=== PATIENT | female | born 1960 | race Caucasian/White ===

== ENCOUNTER 2022-11-12 20:18 | Outpatient (REF) | payer OTHER, SELFPAY ==
[2022-11-19 00:09] LABS: Age Gdln ACOG Testing Note (.); HPV Aptima Positive (Negative); HPV Genotype 16 Negative (Negative); HPV Genotype 18,45 Negative (Negative); IGP, Aptima HPV, rfx 16/18,45 Note (.)
== END 2022-11-12 20:19 | disposition home or self-care (01) ==
LOC: LAB 20:18
PROVIDERS: Visit Provider Obstetrics & Gynecology
DX: Z01.419 Encounter for gynecological examination (general) (routine) without abnormal findings (principal)
CPT/HCPCS: 87624; 87625; G0145

== ENCOUNTER 2023-11-29 20:53 | Outpatient (REF) | payer OTHER, SELFPAY ==
[2023-12-07 03:07] LABS: Age Gdln ACOG Testing Note (.); HPV Aptima Positive (Negative); HPV Genotype 16 Negative (Negative); HPV Genotype 18,45 Negative (Negative); IGP, Aptima HPV, rfx 16/18,45 Note (.)
== END 2023-11-29 20:54 | disposition home or self-care (01) ==
LOC: LAB 20:53
PROVIDERS: Visit Provider Obstetrics & Gynecology
DX: Z01.419 Encounter for gynecological examination (general) (routine) without abnormal findings (principal)
CPT/HCPCS: 87624; 87625; 88175

== ENCOUNTER 2024-11-30 12:44 | Outpatient (REF) | payer OTHER, SELFPAY ==
--- OUTSIDE RECORDS SUMMARY | 2024-11-30 12:50 | XMS_ITS | CCD ---
Author Organization [facility] Care Team Providers Care Campaign Management Senior Manager Name Role Phone KENDRICK ., DR DENSON Consulting Unavailable REQUEST, DR NONE LISTED Primary Care Unavaila ble KENDRICK ., DR DENSON Admitting Unavailable KENDRICK ., DR DENSON Attending Unavailable KAREN IVAN Consulting Unavailable KENDRICK ., DR DENSON Attending Unavailable KENDRICK ., DR DENSON Consulting Unavailable REQUEST, DR NONE LISTED Primary Care Unavaila ble KENDRICK ., DR DENSON Admitting Unavailable KILO HUANG Consulting Unavailable WES LOERA Consulting Unavailable GI AGUILAR Primary Care Unavailable Gi Aguilar Primary Care Unavailable Carlos Tsang Admitting UnavailCarlos Cardenas Attending Unavailabl e Unallocated , Noms Provider Primary Care Provi adry DEVIN MARKS Attending Unavailable JANET HARRIS Attending Unavailable Kannan Hi HAZEL Primary Care Provider [phone] Hi Tolbert MD Primary Care Provider [phone] GI AGUILAR Referring Unavailable GI AGUILAR Primary Care Unavailable GIOVANA DURANT Attending Unavailable KANNAN, MUHAMID M Referring Unavailable KANNAN, MUHAMID Ji Primary Care Unavailable CAMERON MYERS Attending Unavailable KANNANANUHAMID Ji Referring Unavailable KANNANANUHAMBROOKLYN Workman Primary Care Unavailable CAMERON MYERS Attending Unavailable KANNAN, ANUHAMID M Referring Unavailable KANNAN, MUHAMID M Primary Care Unavailable CAMERON MYERS Attending Unavailable KANNAN, ANUHAMID Ji Referring Unavailable KANNAN, MUHAMID M Primary Care Unavailable MICHELLE FLORES Attending Unavailable KANNANANUHAMID M Referring Unavailable KANNAN, MUHAMID M Primary Care Unavailable GLENDY, MOHAMMED Attending Unavailable KANNAN, MUHAMID M Referring Unavailable KANNAN, MUHAMID M Primary Care Unavailable DEVIN MARKS Referring Unavailable KANNAN, MUHAMID M Primary Care Unavailable ALLISON CORONA Attending Unavailable KANNAN, MUHAMID M Referring Unavailable KANNAN, MUHAMID M Primary Care Unavailable ALLISON CORONA Attending Unavailable ALLISON CORONA Referring Unavailable KANNAN, MUHAMID M Primary Care Unavailable GLENDY, MOHAMMED Referring Unavailable KANNAN, MUHAMID M Primary Care Unavailable EDD BRUNO Attending Unavailable KANNAN, MUHAMID M Referring Unavailable KANNAN, MUHAMID M Primary Care Unavailable KANNAN, MUHAMID M Primary Care Unavailable CAMERON MYERS Referring Unavailable KANNAN, MUHAMID M Primary Care Unavailable CAMERON MYERS Referring Unavailable KANNAN, MUHAMID M Primary Care Unavailable Allergies Allergy Classification Reported Allergen(s) Allergy Type Date of Onset Reaction(s) Facility (1 source) Dextroamphetamine Drug Allergy [facility] (1 source) Sulfonamides (Antibiotic) Drug allergy (disorder) [facility] Repository (13 sources) Penicillins; Translations: [PENICILLINS] Propensity to adverse reactions 07-08-19 [facility] (12 sources) Rosuvastatin calcium; Translations: [ROSUVASTATIN] Propensity to adverse reactions 07-08-19 [facility] (20 sources) Sulfonamides (Antibiotic) Drug Allergy 10-10-19 Rash [facility] (3 sources) Penicillins Propensity to adverse reactions to drug 07-08-19 [facility] (14 sources) rosuvastatin Drug Allergy 07-08-19 [facility] (16 sources) Sulfate Salt; Translations: [SULFATE SALT] Propensity to adverse reactions to drug 08-03-19 19 [facility] (10 sources) Penicillins Propensity to adverse reactions to drug 07-08-19 [facility] (4 sources) Sulfonamides (Antibiotic); Translations: [SULFA (SULFONAMIDE ANTIBIOTICS)] Propensity to adverse reactions to drug (disorder) 10-10-19 [facility] (2 sources) Sulfated Tallow Sodium Salt Allergy to substance 08-03-19 [facility] Medications Current Medications Medication Drug Class(es) Dates Sig (Normalized) Sig (Original) acetaminophen 500 mg oral tablet (20 sources) Start: 03-30-2022 take 2 tablets by mouth every six hours as needed acetaminophen (Tylenol) 500 MG tablet Take 1,000 mg by mouth every 6 (six) hours if needed. 03/30/2022 Active acetaminophen 325 mg / HYDROcodone bitartrate 5 mg oral tablet (4 sources) Opioid Agonist Start: 10-26-2024 End: 11-06-2024 HYDROcodone-acetami nophen (NORCO) 5-325 mg per tablet Indications: Acute bilateral low back pain with sciatica, sciatica laterality unspecified , Bulging of lumbar intervertebral disc Take 1 tablet by mouth every 6 (six) hours as needed for pain for up to 7 days. Max Daily Amount: 4 tablets 28 tablet 10/30/2024 11/06/2024 Active ascorbic acid 60 mg / cuprous oxide 2 mg / dl-alpha tocopheryl acetate 30 mg / lutein 6 mg / zinc oxide 15 mg oral capsule (3 sources) Vitamin C take 1 tablet by mouth in the morning Multiple Vitamins-Minerals (Multi Complete) capsule Take 1 tablet by mouth in the morning. Active aspirin 81 mg chewable tablet (20 sources) Platelet Aggregation Inhibitor, Nonsteroidal Anti-inflammatory Drug ASPIRIN 81 MG chewable tablet Chew 81 mg 1 (one) time each day at the same time. Active take 1 tablet by mouth once alen y aspirin 81 mg Take 1 tablet (81 mg total) by mouth nightly. Active atorvastatin 20 mg oral tablet (20 sources) HMG-CoA Reductase Inhibitor Start: 11-25-2023 take 1 tablet by mouth in the morning atorvastatin (Lipitor) 20 MG tablet Take 20 mg by mouth in the morning. 11/25/2023 Active Calcium (14 sources) Phosphate Binder, Calcium CALCIUM ORAL Take by mouth in the morning. Active CALCIUM ORAL Mariusz e by mouth daily. Active cephalexin 500 mg oral capsule (2 sources) Cephalosporin Antibacterial Start: 01-27-2024 End: 02-03-2024 take 1 capsule by mouth in the morning cephalexin (Keflex) 500 MG capsule Indications: Folliculitis , Itching in the vaginal area Take 1 capsule (500 mg) by mouth in the morning and 1 capsule (500 mg) before bedtime. Do all this for 7 days. 14 capsule 01/27/2024 02/03/2024 Active cholecalciferol, vitD3,/vit K2 (VITAMIN D3-VITAMIN K2 ORAL) (10 sources) cholecalciferol, vitD3,/vit K2 (VITAMIN D3-VITAMIN K2 ORAL) Take by mouth. Active ciprofloxacin 500 mg oral tablet (2 sources) Quinolone Antimicrobial Start: 11-30-2024 End: 12-07-2024 take 1 tablet by mouth in the morning ciprofloxacin (Cipro) 500 MG tablet Indications: Urinary Tract Infection Take 1 tablet (500 mg) by mouth in the morning and 1 tablet (500 mg) before bedtime. Do all this for 7 days. 14 tablet 11/30/2024 12/07/2024 Active colchicine 0.6 mg oral tablet (10 sources) take 1 tablet by mouth in the morning colchicine 0.6 MG tablet Take 0.6 mg by mouth in the morning. Active ezetimibe 10 mg oral tablet (15 sources) Dietary Cholesterol Absorption Inhibitor Start: 11-25-2023 End: 10-04-2024 take 1 tablet by mouth in the morning ezetimibe (ZETIA) 10 mg tablet Take 1 tablet (10 mg total) by mouth in the morning. 90 tablet 2 10/04/2024 Active fluconazole 150 mg oral tablet (2 sources) Azole Antifungal Start: 01-27-2024 End: 01-27-2024 take 1 tablet by mouth once, then take 1 tablet by mouth once fluconazole (Diflucan) 150 MG tablet Indications: Folliculitis , Itching in the vaginal area , Yeast infection Take 1 tablet (150 mg) by mouth 1 (one) time for 1 dose This is a 1 time dose, take single tablet by mouth. 1 tablet 1 01/27/2024 01/27/2024 Active 24 hr isosorbide mononitrate 30 mg extended release oral tablet (20 sources) Nitrate Vasodilator Start: 10-27-2022 End: 04-10-2024 take 1 tablet by mouth once daily isosorbide mononitrate ER (Imdur) 30 MG 24 hr tablet Take 1 tablet by mouth Daily 10/27/2022 Active latanoprost 0.05 mg/ml ophthalmic solution (10 sources) Prostaglandin Analog take 1 drop(s) into the eye(s) at bedtime latanoprost (Xalatan) 0.005 % ophthalmic solution Administer 1 drop into both eyes at bedtime. Active lisinopril 5 mg oral tablet (20 sources) Angiotensin Converting Enzyme Inhibitor Start: 04-13-2022 End: 04-14-2024 take 1 tablet by mouth in the morning lisinopril 5 MG tablet Take 5 mg by mouth in the morning. 04/13/2022 Active 24 hr metFORMIN hydrochloride 500 mg extended release oral tablet (17 sources) Biguanide Start: 09-22-2024 take 1 tablet by mouth every twenty-four hours at mealtime metFORMIN XR (Glucophage-XR) 500 MG 24 hr tablet Indications: Unable to lose weight TAKE 1 TABLET BY MOUTH IN THE EVENING. TAKE WITH MEALS DO NOT CRUSH, CHEW, OR SPLIT. 90 tablet 3 09/22/2024 Active Start: 11-29-2023 End: 12-29-2023 take 1 tablet by mouth every twenty-four hours at mealtime metFORMIN XR (Glucophage-XR) 500 MG 24 hr tablet Indications: Unable to lose weight Take 1 tablet (500 mg) by mouth in the evening. Take with meals Do not crush, chew, or split. 30 tablet 11 11/29/2023 Active End: 08-30-2024 take 1 tablet by mouth once daily at breakfast metFORMIN XR (GLUCOPHAGE XR) 500 mg 24 hr tablet Take 1 tablet (500 mg total) by mouth daily with breakfast. 08/30/2024 Discontinued (Patient Stopped On Own) metoprolol tartrate 50 mg oral tablet (20 sources) beta-Adrenergic Manuel Start: 03-29-2023 End: 04-14-2024 take 1 tablet by mouth once metoprolol tartrate (LOPRESSOR) 50 mg tablet Take 1 tablet (50 mg total) by mouth every 12 (twelve) hours. 180 tablet 3 03/29/2023 04/14/2024 Discontinued Start: 04-13-2022 take 1 tablet by angelic th in the morning metoprolol tartrate (Lopressor) 50 MG tablet Take 50 mg by mouth in the morning and 50 mg in the evening. 04/13/2022 Active Multiple Vitamins-Minerals (Multi Complete) capsule (7 sources) take 1 tablet by mouth in the morning Multiple Vitamins-Minerals (Multi Complete) capsule Take 1 tablet by mouth in the morning. Active jvmpkjhu-fkd-NO-lycopen- lutein (CENTRUM SILVER) 0.4 mg-300 mcg- 250 mcg tablet (14 sources) take 1 tablet by mouth once in the morning dslbuokx-ixk-DO-lycopen -lutein (CENTRUM SILVER) 0.4 mg-300 mcg- 250 mcg tablet Take 1 tablet by mouth in the morning. Active naloxone (NARCAN) 4 mg/actuation spray,non-aerosol nasal spray (3 sources) Start: naloxone (NARCAN) 4 mg/actuation spray,non-aerosol nasal spray Indications: Acute bilateral low back pain with sciatica, sciatica laterality unspecified , Bulging of lumbar intervertebral disc Administer 1 spray (4 mg total) into alternating nostrils as needed for opioid reversal. 1 each 10/30/2024 Active nitroglycerin 0.4 mg sublingual tablet (14 sources) Nitrate Vasodilator Start: nitroglycerin (NITROSTAT) 0.4 MG SL tablet Indications: Multiple vessel coronary artery disease , S/P CABG (coronary artery bypass graft) 1 under the tongue as needed for angina, may repeat q5mins for up three doses 30 tablet 3 11/25/2023 Active 12 hr orphenadrine citrate 100 mg extended release oral tablet (5 sources) Muscle Relaxant Start: End: take 1 tablet by mouth twice daily as needed for pain orphenadrine (NORFLEX) 100 mg 12 hr tablet Indications: Acute bilateral low back pain with sciatica, sciatica laterality unspecified , Bulging of lumbar intervertebral disc Take 1 tablet (100 mg total) by mouth 2 (two) times a day as needed for pain or muscle spasms for up to 14 days. 28 tablet 11/03/2024 11/10/2024 Discontinued (Therapy completed) predniSONE 20 mg oral tablet (3 sources) Start: End: take 1 tablet by mouth once daily, then take 0.5 tablet by mouth once daily predniSONE (DELTASONE) 20 mg tablet Indications: Acute bilateral low back pain with right-sided sciatica Take 1 tablet (20 mg total) by mouth daily for 4 days, THEN 0.5 tablets (10 mg total) daily for 4 days. 6 tablet 10/30/2024 11/07/2024 Active 12 hr timolol 5 mg/ml ophthalmic solution (14 sources) beta-Adrenergic Manuel Start: take 1 drop(s) into the eye(s) in the morning timolol (TIMOPTIC) 0.5 % ophthalmic solution Administer 1 drop to both eyes in the morning. 11/30/2023 Active valACYclovir 500 mg oral tablet (8 sources) Herpesvirus Nucleoside Analog DNA Polymerase Inhibitor, Herpes Simplex Virus Nucleoside Analog DNA Polymerase Inhibitor, Herpes Zoster Virus Nucleoside Analog DNA Polymerase Inhibitor Start: take 1 tablet by mouth in the morning valACYclovir (VALTREX) 500 mg tablet Take 1 tablet (500 mg total) by mouth in the morning. 08/13/2024 Active Start: 07-17-2024 End: 07-27-2024 take 1 tablet by mouth in the morning, then take 1 tablet by mouth at bedtime valACYclovir (VALTREX) 1000 mg tablet Take 1 tablet (1,000 mg total) by mouth in the morning and 1 tablet (1,000 mg total) before bedtime. 07/17/2024 07/27/2024 Active Completed/Discontinued Medications Medication Drug Class(es) Dates Sig (Normalized) Sig (Original) cholecalciferol 0.125 mg oral tablet (5 sources) Vitamin D End: 07-20-2024 cholecalciferol, vitamin D3, 5,000 units tablet Take 1,000 Units by mouth in the morning. 07/20/2024 Discontinued (Patient Stopped On Own) estradiol 0.1 mg/ml vaginal cream (3 sources) Estrogen Start: 03-20-2020 End: 11-29-2023 estradiol (Estrace) 0.1 MG/GM vaginal cream Insert 2 g into the vagina 1 (one) time each day at the same time. 03/20/2020 11/29/2023 Discontinued pravastatin sodium 40 mg oral tablet (3 sources) HMG-CoA Reductase Inhibitor Start: 03-19-2022 End: 11-29-2023 take 1 tablet by mouth in the morning pravastatin (Pravachol) 40 MG tablet Take 40 mg by mouth in the morning. 03/19/2022 11/29/2023 Discontinued semaglutide (OZEMPIC) 0.25 mg or 0.5 mg (2 mg/3 mL) pen injector (3 sources) Start: 08-04-2024 End: 08-30-2024 semaglutide (OZEMPIC) 0.25 mg or 0.5 mg (2 mg/3 mL) pen injector Indications: Obesity (BMI 35.0-39.9 without comorbidity) , Prediabetes Inject 0.5 mg under the skin every 7 days. 3 mL 08/04/2024 08/30/2024 Discontinued Start: 08-04-2024 semaglutide (O ZEMPIC) 0.25 mg or 0.5 mg (2 mg/3 mL) pen injector Indications: Obesity (BMI 35.0-39.9 without comorbidity) , Prediabetes Inject 0.5 mg under the skin every 7 days. 3 mL 08/04/2024 Active Problems Active Problems Problem Classification Problem Date Documented Date Episodic/Chronic Abdominal pain (1 source) Pelvic and perineal pain; Translations: [PELVIC AND PERINEAL PAIN] Onset: 06-24-2022 Episodic Acute myocardial infarction (14 sources) Myocardial infarction; Translations: [Non-ST elevation (NSTEMI) myocardial infarction] Onset: 03-25-2022 03-25-2022 Chronic Coronary atherosclerosis and other heart disease (20 sources) Coronary arteriosclerosis; Translations: [Atherosclerotic heart disease of [place] coronary artery without angina pectoris] Onset: 03-26-2022 03-26-2022 Chronic Diabetes mellitus without complication (1 source) Type 2 diabetes mellitus without complications; Translations: [TYPE 2 DM WITHOUT COMPLICATIONS] Onset: 06-24-2022 Chronic Diabetes mellitus without complication (13 sources) Prediabetes; Translations: [Hyperglycemia] Onset: 08-04-2024 08-04-2024 Episodic Disorders of lipid metabolism (1 source) Hyperlipidemia, unspecified; Translations: [Hyperlipidemia, unspecified] Onset: 11-25-2023 Chronic Diverticulosis and diverticulitis (14 sources) Diverticulitis; Translations: [Diverticulitis of intestine, part unspecified, without perforation or abscess without bleeding] Onset: 09-22-2023 09-22-2023 Chronic Essential hypertension (2 sources) Essential (primary) hypertension; Translations: [ESSENTIAL PRIMARY HYPERTENSION] Onset: 06-24-2022 Chronic Malaise and fatigue (2 sources) Fatigue; Translations: [Other fatigue] 11-29-2023 Episodic Mycoses (2 sources) Mycosis; Translations: [Candidiasis, unspecified] 01-27-2024 Episodic Osteoporosis (2 sources) Postmenopausal osteoporosis; Translations: [Age-related osteoporosis without current pathological fracture] 11-30-2024 Chronic Other bone disease and musculoskeletal deformities (2 sources) Osteopenia; Translations: [Other specified disorders of bone density and structure, unspecified site] 11-29-2023 Episodic Other female genital disorders (2 sources) Cyst of vagina; Translations: [Other specified noninflammatory disorders of vagina] 01-27-2024 Episodic Other female genital disorders (2 sources) Pruritus of vagina; Translations: [Other specified noninflammatory disorders of vagina] 01-27-2024 Episodic Other non-traumatic joint disorders (1 source) Hip pain Onset: 10-26-2024 Episodic Other nutritional; endocrine; and metabolic disorders (18 sources) Body mass index 30+ - obesity; Translations: [Body mass index (BMI) 33.0-33.9, adult] Onset: 03-09-2018 03-09-2018 Chronic Other nutritional; endocrine; and metabolic disorders (2 sources) Obesity, unspecified; Translations: [Obesity, unspecified] Onset: 11-25-2023 Chronic Other screening for suspected conditions (not mental disorders or infectious disease) (1 source) Abnormal findings on diagnostic imaging of other specified body structures; Translations: [ABNORML FIND DX IMG OTH BODY STRUC] Onset: 06-24-2022 Chronic Other screening for suspected conditions (not mental disorders or infectious disease) (19 sources) Patient encounter status; Translations: [Encounter for screening mammogram for malignant neoplasm of breast] Onset: 08-02-2018 11-29-2023 Episodic Residual codes; unclassified (14 sources) Obstructive sleep apnea syndrome; Translations: [Obstructive sleep apnea (adult) (pediatric)] Onset: 03-09-2018 03-09-2018 Chronic Spondylosis; intervertebral disc disorders; other back problems (7 sources) Disorder of lumbar disc; Translations: [Bulging of lumbar intervertebral disc] Onset: 10-30-2024 10-30-2024 Chronic Spondylosis; intervertebral disc disorders; other back problems (11 sources) Acute back pain with sciatica; Translations: [Lumbago with sciatica, right side] Onset: 08-04-2024 10-30-2024 Episodic Unclassified (1 source) Er Follow-up Onset: 10-30-2024 Unclassified (1 source) ozempic Onset: 08-04-2024 Unclassified (1 source) EMS Onset: 10-26-2024 Urinary tract infections (2 sources) Urinary tract infectious disease; Translations: [Urinary tract infection, site not specified] 11-30-2024 Episodic Past or Other Problems Problem Classification Problem Date Documented Da te Episodic/Chronic Anal and rectal conditions (1 source) Other specified diseases of anus and rectum; Translations: [Other specified diseases of anus and rectum] Onset: 01-19-2024 Episodic Coronary atherosclerosis and other heart disease (1 source) Presence of aortocoronary bypass graft; Translations: [Presence of aortocoronary bypass graft] Onset: 11-25-2023 Episodic Gastrointestinal hemorrhage (2 sources) Hemorrhage of anus and rectum; Translations: [Rectal hemorrhage] Onset: 01-19-2024 Episodic Genitourinary symptoms and ill-defined conditions (14 sources) Dysuria; Translations: [Dysuria] Onset: 09-22-2023 09-22-2023 Episodic Mood disorders (14 sources) Mood disorders Onset: 09-22-2023 Resolved: 11-10-2024 09-22-2023 Other and unspecified benign neoplasm (14 sources) History of adenomatous polyp of colon; Translations: [History of adenomatous polyp of colon] Onset: 08-02-2018 08-02-2018 Episodic Other inflammatory condition of skin (1 source) Pruritus ani; Translations: [Pruritus ani] Onset: 01-19-2024 Episodic Other lower respiratory disease (17 sources) Dyspnea; Translations: [Shortness of breath] Onset: 02-19-2023 02-19-2023 Episodic Other lower respiratory disease (1 source) Shortness of breath; Translations: [Shortness of breath] Onset: 02-19-2023 Episodic Other nutritional; endocrine; and metabolic disorders (14 sources) Morbid obesity; Translations: [Morbid (severe) obesity due to excess calories] Onset: 03-09-2018 Resolved: 03-09-2018 03-09-2018 Chronic Other nutritional; endocrine; and metabolic disorders (11 sources) Failure to lose weight; Translations: [Other symptoms and signs concerning food and fluid intake] Onset: 11-29-2023 11-29-2023 Episodic Other skin disorders (20 sources) Loss of hair; Translations: [Nonscarring hair loss, unspecified] Onset: 11-29-2023 11-29-2023 Episodic Other skin disorders (7 sources) Folliculitis; Translations: [Follicular disorder, unspecified] Onset: 01-27-2024 01-27-2024 Episodic Residual codes; unclassified (1 source) Pain, unspecified; Translations: [Pain, unspecified] Onset: 01-10-2024 Episodic Unclassified (14 sources) Onset: 08-02-2018 Resolved: 11-10-2024 08-02-2018 Results Test Name Value Interpretation Reference Range Facility Urinalysis macro (dipstick) panel (U)on 11-30-2024 Bilirubin, UA Negative Negative - 4(70) +++ mg/dL [facility] Blood, UA Negative Negative - 50 Reggie/mcL [facility] Clarity, UA Clear [facility] re Color, UA Yellow [facility] [employer] Glucose, UA Negative Negative - 2000(110) ++++ mg/dL [facility] Interpretation and review of laboratory results Normal [facility] Ketones, UA Negative Negative - 160(16) ++++ mg/dL [facility] Leukocytes, UA 1+ Negative - 500+++ Amy/mcL [facility] Nitrite, UA Negative Negative - Positive [facility] pH, UA 6.0 5 - 9 [facility] [email or web address] e Protein, UA Negative Negative - 2000(20) ++++ mg/dL [facility] Spec Grav, UA 1.020 1 - 1.03 [facility] Urobilinogen, UA 1.0 0.2 - 12 mg[facility] WO CONTon CT LUMBAR SPINE WO CONT CT LUMBAR SPINE WO CONT History: Pain and injury. Exam/Technique: Contiguous axial images are obtained of the CT lumbar spine without intravenous contrast. Coronal and sagittal reconstructions were performed and reviewed. Automatic dose exposure reduction technique utilized. Comparison: Findings: No paraspinous mass or fluid collection. Nonobstructing stone in the lower pole of the right kidney. Vascular calcification of the aorta. Osteopenia. Scoliosis. Multilevel degenerative changes disc osteophytes and facet disease. No loss of vertebral body height. Scattered Schmorl's nodes as seen at L1 superior endplate. Disc spaces above the thoracolumbar junction are grossly noted to demonstrate marked degenerative disc disease without significant central canal stenosis or neural canal stenosis. L1-L2 marginal disc bulging without any significant stenosis. L2-3 broad-based disc bulge flattening the thecal sac facet disease resulting in central canal stenosis and mild neural canal and lateral recess stenosis. This is noted more marked on the right than the left. L3-4 significant broad-based disc bulge and posterior element facet hypertrophy. Moderate central canal stenosis and moderate neural canal stenosis right more than left. L4-5: Broad-based disc bulge. Facet disease. No significant central canal stenosis. Bilateral moderate neural canal stenosis. L5-S1: disc bulging and disc osteophyte complexes. Neural canal stenosis moderate degree. IMPRESSION: Significant disc osteophyte complexes and asymmetrical in the lumbar spine with central canal stenosis at L3-4 most advanced and moderate neural canal stenosis noted at L3-4 and L4-5 as well as further areas of right-sided neural canal stenosis at L2-3. All CT scans at this facility use dose modulation, iterative reconstruction, and/or weight based dosing when appropriate to reduce radiation dose to as low as reasonably achievable. Finalized by Bryn Hernández MD on 10/26/2024 12:29 PM Normal [facility] URINALYSISon 10-26-2024 Bilirubin Ql (U) Negative Normal Negative [facility] Comment on above: Performed By: #### U A #### [facility] ([address] [id number] VIR BLOOD/HGB Negative Normal Negative [facility] Comment on above: Performed By: #### U A #### [facility] ([address] [address] VIR Color (U) Yellow Normal Yellow [facility] Comment on above: Performed By: #### U A #### [facility] ([address] [address] VIR Glucose Ql (U) Negative Normal Negative, 250 mg/dL [facility] Comment on above: Performed By: #### U A #### [facility] ([address] [address] VIR Ketones Ql (U) Negative Normal Negative [facility] Comment on above: Performed By: #### U A #### [facility] ([address] [place] [address] VIR Leukocyte esterase Test strip Ql (U) Negative Normal Negative [facility] Comment on above: Performed By: #### U A #### [facility] ([address] [place] [address] VIR Nitrite Ql (U) Negative Normal Negative [facility] Comment on above: Performed By: #### U A #### [facility] ([address] [place] [address] VIR PH,URINE 7.0 Normal 5.0-8.5 [facility] Comment on above: Performed By: #### U A #### [facility] ([address] [place] [address] VIR Protein Ql (U) Negative Normal Negative [facility] Comment on above: Performed By: #### U A #### [facility] ([address] [place] [address] VIR Specific gravity (U) [Rel density] 1.010 Normal 1.003-1.035 [facility] Comment on above: Performed By: #### U A #### [facility] ([address] [place] [address] VIR TURBIDITY Clear Normal Clear [facility] Comment on above: Performed By: #### U A #### [facility] ([address] [place] [address] VIR UROBILINOGEN 0.2 eu/dL Normal 0.2 eu/dL, 1.0 eu/dL [facility] Comment on above: Performed By: #### U A #### [facility] ([address] [place] [address] VIR XR HIP RT 2-3 VIEWS W OR WO PELVISon 10-26-2024 XR HIP RT 2-3 VIEWS W OR WO PELVIS XR HIP RT 2-3 VIEWS W OR WO PELVIS XR HIP RT 2-3 VIEWS W OR WO PELVIS HISTORY: Right hip pain radiating down right lower extremity. COMPARISON: CT abdomen and pelvis 11/03/2023 FINDINGS: No acute fracture or malalignment. Joint spaces appear grossly well-preserved. Pelvic ring appears intact. No obvious soft tissue abnormality. Degenerative changes at L5-S1. Mild heterotopic bone formation near the greater trochanter IMPRESSION: * No acute osseous abnormality. Approved by Resident: Luis Dias MD on 10/26/2024 4:05 PM I, Chet Mondragon MD have personally reviewed the image(s) and agree with and/or edited the report H9 Finalized by Chet Mondragon MD on 10/26/2024 4:09 PM Normal [facility] POCT Hemoglobin A1con 2024 ADA Target < 8 Yes [facility] HbA1c (Bld) [Mass fraction] 6.3 % 4 - 7 % [facility] LDL CHOLESTEROL, DIRECTon Cholesterol in LDL [Mass/Vol] 74 mg/dL Normal <=130 [facility] Comment on above: Result Comment: LDL <100 mg/dL - Desirable LDL 130-159 mg/dL - Borderline High Risk LDL >160 mg/dL - High Risk Performed By: #### D LDL #### [facility] ([facility]) [address] [place] [address] VIR TRIGLYCERIDESon 07-14-2024 Triglyceride [Mass/Vol] 174 mg/dL High 27-150 [facility] Comment on above: Performed By: #### T RIG #### [facility] ([facility]) 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 Computer aided detection was utilized. FINDINGS: There are scattered areas of fibroglandular density. There are no suspicious masses, calcifications, or areas of architectural distortion. IMPRESSION: No mammographic evidence of malignancy. BI-RADS: BI-RADS 1 - Negative RECOMMENDATION: Routine screening mammogram in 1 year. RISK ASSESSMENT: TC Lifetime risk: 9.1%. The patient's reported personal and family medical history was used calculate their Tyrer-Cuzick lifetime risk of malignancy. Scores less than 20% are not considered high risk per ACR guidelines and patient should continue with the above recommendation. Finalized by Andre Hauser MD on 01/11/2024 10:38 AM 1 b MAMM 1 YR Normal [facility] IGP,APTIMA HPV,AGE GDLNon AGE GDLN ACOG TESTING Note . [facility] Comment on above: TESTS RESULT FLAG UN ITS REF RANGE LAB Clinician Provided Cytology Information Source.............Cervix;Endocervix No. of containers..01 ThinPrep Vial Age Algo ACOG [place]... 30- FLAG LEGEND: L-Low Normal,H-High Normal,LL-Alert Low,HH-Alert High <-Panic Low,>-Panic High,A-Abnormal,AA-Critical Abnormal Performed at: 01 =G [address] [address] Margie Menjivar MD, HPV APTIMA Positive Abnormal Negative [facility] Comment on above: This nucleic acid am plification test detects fourteen high- risk HPV types (16,18,31,33,35,39,45,51,52,56,58,59,66,68) without differentiation. HPV GENOTYPE 16 Negative Negative [facility] HPV GENOTYPE 18,45 Negative Negative [facility] Comment on above: Performed at: =G - L [facility] [address], [place] [id number] Circulation Tender: Margie Menjivar MD, Phone: [phone] Performed at: [facility] [address] [id number] Circulation Tender: Margie Menjivar MD, Phone: [phone] IGP, APTIMA HPV, RFX 16/18,45 Note . [facility] Comment on above: TESTS RESULT FLAG UN ITS REF RANGE LAB DIAGNOSIS: 02 NEGATIVE FOR INTRAEPITHELIAL LESION OR MALIGNANCY. CELLULAR CHANGES ASSOCIATED WITH INFLAMMATION ARE PRESENT. Specimen adequacy: 02 Satisfactory for evaluation. Endocervical and/or squamous metaplastic cells (endocervical component) are present. Performed by: Modesta Farmer, Gunite Nozzle Operator (ASCP) . 02 Note: Note 02 The Pap smear is a screening test designed to aid in the detection of premalignant and malignant conditions of the uterine cervix. It is not a diagnostic procedure and should not be used as the sole means of detecting cervical cancer. Both false-positive and false-negative reports do occur. Test Methodology: Note 02 This liquid based ThinPrep(R) pap test was screened with the use of an image guided system. HPV Genotype Reflex Note 02 Criteria met, see HPV Genotype results. FLAG LEGEND: L-Low Normal,H-High Normal,LL-Alert Low,HH-Alert High <-Panic Low,>-Panic High,A-Abnormal,AA-Critical Abnormal Performed at: [address] [address] Margie Menjivar MD, Interpretation and review of laboratory results Abnormal [employer] [facility]AT[facility] CERVIX ENDOCERVIX [facility] Cervical or vaginal smear or scraping studyOrdered By: Lisa Jackson on 11-29-2023 Interpretation and review of laboratory results Abnormal [facility] [employer] [facility] Coding Summaryon 02-23-2023 Coding Summary HTMLBase 64 NkldfqjbCQx0pQn+PGhlY WQ+HB7NQGCtH35lbYDauB 1qW5YVQTtCZinjQIYXRHg YWiZonrQwEM3fbJViXFMb IC8+PL4nPMEtJgqlvQEbr 9X9dCM4H24ynu8tYGvitF Q2DTBwMxDhqrdjd1eghKr 6IDcuNmluOyBt KOUjiV93AIW1jW22Wa87y ZKunQKxu0wbiNv0KtRcSB NiCRJ3xZqgDPltq8ZgGQL cK22izVDjl8L1 KDOfxAjiiFTgFwRloAY1p B6iKTmehgfoz0ldbousSn v9wa66pKVmr7U8hJR4O2V sjwN4YHYdoRWp ZqdlnYSBzC2mtserc6mex rnvVdKaEWElDFl4BWx9JE IhjXmfVsFoYT58VOB1VYV rceDtU8JpYGTf aDrwUxF8q6V0Rq5YM4FMF unsS1ASZVXUMNxixJH+PC 09pi38Z5XfIltyVsw9FGB oYIO0xCD9bE0p QUFiZJtgz3J2uBB4Q4Rvw aAstm0zd0puRFFxYSacG3 7ahGKtr2G6JFHbqNT3RZM lmIcjMaAnlL39 Oyc+MSKqqSuai4TbUoxbb 2dnn8zblSu2PyrtUDRoxl GsdQjiRDH1j8PgOw5dMCU lkMM0jLZ8dP8i RuQyDyP4LUgaX650IrWsl NGnSyveB54tZ6GghBJ+PH IsApg3AZAloDayOA5zT1H hZGRpbmctbGVm dUhoOR3pBNJqoytwZWGec G2eLJGpE9e0YfGbClC4GT alT7UmEGZrbogxBt74iB6 nFuGsWrS3TXgp R6SilrC6XFNanBXnPGbhD NW8T06fl9O8KTQaQKSlKS Y9kYF5tW4sgDmkosxtgKL mdDsgdmVydGlj DOdnLUbwR604WWPwtRawH kNvZGluZyBEYXRlOiAgMD EvMDkvMjAyNDwvdGQ+PHR mOAX5aGxoLCTz zMZnZTmvId7ujAqowCmsS E7vHSCwnrxjDHTniC8pRT XuqXEpgUnzZS3pRSArbtb aj320VbGhIEO5 JJVwaCVaQ8TbtI2gAfNxV PFyUAIkA4LwsHHmFVciA0 28OJrpXeD9XIPngfRyN3Z sLWFsaWduOiB0 t3Z1Gy1Li8VuahfjL6Mwm HRjQvOxTijkFMh8V8SoGy wvdHI+YX24TBBvBL39IWw 5BVX1yNmtGMee EXMrI9GvgD8sAjAkASHcP GRkOyc+PHRhYmxlIHdpZH RoPScxMDAlJyBzdHlsZT0 aIt8nKYIkABZc dTmekNWdGcDio8ojXNOtW WkhFJ5loOmlN4UqiPB7TH Yfm6m7Rn43W32eW3EcbFZ +JUAsxAF6xKP8 cY7aShTvMhN3ETdxP443H cNlnODpJuide4eca9xdzK i1WqR4ZHGsceSlnLanWUK 5k7HmMo91K97i IHdpZHRoPSIxNSUiIHZhb Jvids7thG4sPq6+PGNvbC K0sIJ8nS8xXwQaEbO7RNd hP971NvQlvQEx Bpofp7kix6qeyCl2BcNmQ JIbpyElaKywCHQ0w7QlYo 78F2EcfTxfs8EaFpk3fe0 7vPPpf6F5oNX6 S0CwDHXvwmwkcGHznIasF O5vAGMlizpsNXYyzO0lDA OfW9d1YaZsDfD1YLnyT5O axpA8MOBexTAs FNPwyBVUeK5mgxuig8yys yisOwFiENVcJBi5PDl2EB RmuOjtFfLeCPX0PgB6YTF 9kMNbuB9vzXnb fvcmtD6kMfw+UCV9uYLvn BARQC5oLramkOR+PHRkIH L1aZmiKZvsPRDudT2qONI wG5h7OgYbNgL8 EHtfZ1FkrdP6GQGaaDTvK OVruQEDyN7pcqfbv0kdtm bsDsMjOLFgYQv8VRz6TOT saWduOiBsZWZ0 WaH6QYL7uUBtqQ1uwQbtn aakqV5oGte+QmlydGggRG W6OBl2N6MiHbm0MFAacHt bMO5peWBdJNiy Jm4anAgksNptOH2qBXKmn wtkh666FpYww4uiTQKioD UnMGemLLW8V25bw9D4HYV dMYOuAUC5oFH7 yX1cwElxzbpucSSjjHdra mQimVwpEGysQYskX485YI TqeMfjVhDhICz0O3XqRek 2CQSxvDgtAN9d cFGySFdaCr5drRyfpIdtJ R5dUDNgdxjuk552QbXaw2 baDYHeqCRcMKtcOBY9X50 sh5G4MPMyBDHl ERZ5oDV1zC9bqQvdjhjii GVmdDsgdmVydGljYWwtYW ccU402WXSuoXolOuKujOo 7H6CbIfx0WTRg sVkbTT6vyEKtCLwwCq3qq AedsLgmCL2tKGKdqqzfk3 33EbNjj0ddICTzwDDbGQj zFWM0X98na8N0 CVUeEVVfAWD0zGF8rW9au GlnbjogbGVmdDsgdmVydG ubPXslBYytB510QFLasBr nPlBhdGllbnQg ILzxENf9O9LrZfeexSA+P D85GZKvWP64qFFmhYXcj5 qseOi5OjEbESYsLZM4mEc cIIjgd1PxUNGd Z30kwNQkt2X3WLTtpDgcl IEoXyKrhUV0nG7jGQrnbv mdc6ljeuboTkouq8kjzz1 9gI99S77kGMdz ZHRoPSIzMCUiIHZhbGlnb j5tnG3dBd1+GFIybTO5gW N2kJ7vFKWfIaF4CLauB37 9InRvcCIvPjxj y4dmr6ljuIe3AuJ4NKGgp fEdfRukRMH7x4CmJv24S0 9sIHdpZHRoPSIyMCUiIHZ pkMdvxt4uxF6p Ii8+YQRcgBF9qJG0rA1dH vEoBmS6CTwkE170QaBshP IfZchcF45sR1GizLG+PHR lWri3KSLrsNgy HX7brGXaVWpoEt5kLKM4P iFiIlCkQJyuM9PqFCMbcn hkezrtbDG3CIEdSGYnyZ4 0Pm8nuZisPSGm jZUMkJ9momdrk2asmronL yEaAHOnYLl0SRj8OORjjP afKgMeHZS3EfJ6ENS0cJH gbM7dyPecuimr iO7qT8KsFRKbyzgdXs47e A1pZsOcTxK9QPlgMhb+TU YUP9aXQUrbKUTXEYmDRFL MSVpBQkVUSDwv dGQ+XBRpGSO9nOxeJFjaE UGfaQ5kVIRtG9o4WcCiFk K4VWlsJ4XaBWBaffbcUo4 7bE7cQbFkRuP0 JPtjF1EsafQ4QAMwyBDcN LoqIAF4X37va1R9NSDmQT MhMQL0cJS9oP2zpNsgepj gbGVmdDsgdmVy pOboVXzxENzuP032AZWbo BzuOxIeVyH3DuS3QeU4L8 KoXyg1ALMkhEhpQM6ojDN lTZqbAd9hzPhp uOupWZ4rYNPaayymOLKhx L2rZULcpQSbwTwfMC2lHQ Zcgspni684BeJlPZM1YGQ hnZFpH5LfbH0y IeNhMMVwTAMzM0UpyDTkJ HwvR444RSicLuE2NEJthf BjF7SfYDGrdOllWfW7u9O 1Tb57XlGUIFWy czwvdGQ+SASnJUV9uTjzO NqrIARroM9iKSPzI3q3Ac YpVlW3ZWpmO1NuLCGqhfp nNz02hE6lQzNp GxA1BYfgZ6TswhZ8GFJin NQrLJnhHOC2L04xw9R9WL PqIFQtKED4qQU6jV3ffLi nbjogbGVmdDsg hlAuaHosFGujUZvmI671J HRvcDsnPkZFTUFMRTwvdG Q+DKWiJCQ6aSgtQNihRJF eyV8oBXYyO0k4 QsSuAmW2OXncD4ItLUXss yjsOy58mU3gHxMlNsY7VF ifQ0FuerT7JBSgzKKzAYb cJRJ3R85rw6T7 CYVpWRLaWUG7tFA4rA8hm GlnbjogbGVmdDsgdmVydG mdNLnzELnxT937AXBrhRr zTn3OPG80NR18 K7QhKvfgnHXolUS+PHRhY mxlIHdpZHRoPScxMDAlJy GbpUsiCK3qKm3wAXOeYJN vbGxhcHNlOiBj x0deACMgVPogQT0qhJegY 5DprDR2TIGft4a1Ne27R1 3qC4FejIA+FMMwpFM2dIG 1rJ4uLiJvIfV4 PAauW644IgIlzFFdJrlyn 2eii5gxwUc9PlMgGEKnqz YcsFhtBNK3l6OcOv27J96 sIHdpZHRoPSIy YSKjRKGrnWsgqm9uqV3jO i8+WVCxfCG8nKR8eI3dZo DvJeQ4IThgD076EmQlzWN oQnwdN94eO3Df dXA+JSQkWsw7RPVarZkaQ F8zqCUiDGywFn4dFUE6Rl LaEyXwLDiqW9YfZAEwkog ctfxraGA4ZLVc EABorP06Bm9guPljPj7dJ JCgLOL0JWFrsQQnD2GdyG 2sYgFcJYAuNXZxS7QrjHQ nEGjqJ285TZtv CwF6LJOariHnC0MwJPCqa HdaEjV8h4S5Jk2WfHhaoF AlFX3gFfAzJUw4S4OcYlr 9FQSioXraQP9u rZFsUXqgUl5zjEvffTjrL S0iRYCsznwad018IiLdi6 kqQSWypTRfMEpvWKN6W78 sy9G8ELNhFRGw JZJ2lKL6sZ5kaSuiokwhb GVmdDsgdmVydGljYWwtYW bsO823ZXWpwKlvNfSRQor 2W3NgSdl4XLBg xAkqOH5wjFLyXFirGt4be YtpcCuiGW5yYDDugcyyu4 71UmLop8zhEXKaeYUrWYf lWXD0A83jr6Q7 UZCuNNTrQLO8tJS3tP6qe GlnbjogbGVmdDsgdmVydG mwHEtjBOvwS431ZALfrMk zQx3DPjm0K5Pa Mcb4VOAkkMttEG6hkDVvA LqyKd5tsLelrLgbSI8tVV Jzysyvr349TgZhg3hwOHM wcHQgVGltZXM7 A74be2N0KXRpIOGwTZS0e QD2sT4msYozbatrtHQazU uptpPecQusMYmrLEkiO96 6IHRvcDsnPlBh eWVyOjwvdGQ+VD70hb07R 5PiHmsfUwj2WFBxHHG6mO P5uM9cJYOfFBduu5B8rEG 7Q9EowoLyvj3y b2x (more content not included)... [facility] Provider Letteron 12-01-2022 Provider Letter December 01, 2022 PREMA FIELD [address] [place] [address] [place] [address] : 1960 Dear Ms. Field, We have been trying to reach you with no success regarding a referral we received from Dr Gi Aguilar. It is important that you return our call upon receiving this letter so that we can set up an appointment for you. Also, at the time of your call, please provide us with your current demographic and insurance information. Thank you for your prompt attention to this matter. Sincerely, [facility] [phone] Normal [facility] Physician Referralon 023 Physician Referral [phone] [id number] Normal [facility] PROTIMEon 06-17-2022 INR Coag (PPP) [Relative time] 0.96 {INR} Normal [facility] Comment on above: Performed By: #### P TT, PT #### [facility] [address] [place] [address] Dr. Ashanti Badillo INR GUIDELINES SEE BELOW Normal [facility] Comment on above: Result Comment: DANUTA RED INR: 2.0 - 3.0 CONDITIONS NOT LISTED BELOW 2.5 - 3.5 FOR PROSTHETIC HEART VALVE REPLACEMENT 2.5 - 3.5 RECURRENT THROMBOSIS Performed By: #### P TT, PT #### [facility] [address] [place] [address] Dr. Ashanti Badillo PT Coag (PPP) [Time] 10.2 s Normal 9.0-11.6 [facility] Comment on above: Performed By: #### P TT, PT #### [facility] [address] [place] [address] Dr. Ashanti Badillo PTTon 06-17-2022 aPTT Coag (Bld) [Time] 25.4 s Normal 22.3-36.2 [facility] Comment on above: Performed By: #### P TT, PT #### [facility] [address] [place] [address] Dr. Ashanti Badillo XR Ankle Complete Left*on XR Ankle Complete Left* FINDINGS: Minimal anterolateral malleolar soft tissue swelling is present; however, no fracture or dislocation is seen within the ankle region (please see foot report). Talar dome and talar avalos are intact. Bone mineralization is normal for this age. Small plantar calcaneal spur. IMPRESSION: 1. No ankle fracture 2. Please see left foot report Report reported and signed by Olegario Giron on 08/22/2021 1510 Normal [facility] [employer] XR Foot Complete Left*on XR Foot Complete Left* HISTORY: Lateral pain fall x 1 day FINDINGS: Minimally distracted oblique fracture distal midshaft 5th metatarsal bone. 2 mm distraction of the lateral cortex, no disruption of the medial cortex proximal extent into the mid shaft region overall fracture length 1.5 cm. No articular communication. No additional fractures. Accessory ossification center neighbors the lateral cortex of the cubooid bone near the calcaneal cuboid joint. Small plantar calcaneal spur. 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 IMPRESSION: 1. Minimally distracted 5th metatarsal distal mid shaft fracture. Report reported and signed by Olegario Giron on 08/22/2021 1513 Normal [facility] SCREENING MAMMOGRAM W/KARIN, BILATERAL*on 04-03-2021 SCREENING MAMMOGRAM W/KARIN, BILATERAL* CLINICAL HISTORY: Screening Mammogram COMPARISON: Dating back to March 20, 2019, December 11, 2016, November 24, 2013 TECHNIQUE: 2D and 3D Tomosynthesis of the right and left breasts was performed. FINDINGS: Breast composition demonstrates scattered fibroglandular densities. Overall appearance is stable. No suspicious microcalcifications, asymmetry, architectural distortion, or associated features are present. IMPRESSION: BIRADS 1: Negative mammogram Board Certified Radiologist. Accredited by the ACR and FDA. MAMMOGRAPHY IS VERY IMPORTANT TO YOUR HEALTH. THE CURRENT [employer] GUIDELINES RECOMMENDS ANNUAL MAMMOGRAPHY BEGINNING AT AGE 40 THIS FACILITY USES A REMINDER SYSTEM TO ENSURE ALL PATIENTS RECEIVE REMINDER NOTIFICATIONS AT THE APPROPRIATE TIME BASED ON THE RECOMMENDATIONS OF THIS EXAM. Report reported and signed by Olegario Giron on 04/03/2021 0948 Normal [facility] Complete Blood Count with Au to Diffon 03-28-2021 Basophils (Bld) [#/Vol] 0.08 10*3/uL Normal 0.00-0.20 [facility] Comment on above: Performed By: #### C MP, TSH reflex FT4, VITD, CBCAD, LIPD #### [facility] [address], [place] [id number] Basophils/100 WBC (Bld) 1.2 % Normal [facility] Comment on above: Performed By: #### C MP, TSH reflex FT4, VITD, CBCAD, LIPD #### [facility] [address], [place] [id number] Eosinophils (Bld) [#/Vol] 0.20 10*3/uL Normal 0.02-0.50 [facility] Comment on above: Performed By: #### C MP, TSH reflex FT4, VITD, CBCAD, LIPD #### [facility] [address], [place] [id number] Eosinophils/100 WBC (Bld) 2.9 % Normal [facility] Comment on above: Performed By: #### C MP, TSH reflex FT4, VITD, CBCAD, LIPD #### [facility] [address], [place] [id number] Erythrocyte distribution width (RBC) [Ratio] 12.6 % Normal 11.0-15.0 [facility] Comment on above: Performed By: #### C MP, TSH reflex FT4, VITD, CBCAD, LIPD #### [facility] [address], [place] [id number] Hematocrit (Bld) [Volume fraction] 46.2 % Normal 35.0-47.0 [facility] Comment on above: Performed By: #### C MP, TSH reflex FT4, VITD, CBCAD, LIPD #### [facility] [address], [place] [id number] Hemoglobin (Bld) [Mass/Vol] 14.9 g/dL Normal 11.6-15.5 [facility] [employer] Comment on above: Performed By: #### C MP, TSH reflex FT4, VITD, CBCAD, LIPD #### [facility] [address], [place] [id number] Lymphocytes (Bld) [#/Vol] 2.0 10*3/uL Normal 0.9-3.9 [facility] Comment on above: Performed By: #### C MP, TSH reflex FT4, VITD, CBCAD, LIPD #### [facility] [address], [place] [id number] Lymphocytes/100 WBC (Bld) 29.0 % Normal [facility] Comment on above: Performed By: #### C MP, TSH reflex FT4, VITD, CBCAD, LIPD #### [facility] [address], [place] [id number] MCH (RBC) [Entitic mass] 28.3 pg Normal 27.0-33.0 [facility] Comment on above: Performed By: #### C MP, TSH reflex FT4, VITD, CBCAD, LIPD #### [facility] [address], [place] [id number] MCHC (RBC) [Mass/Vol] 32.3 g/dL Normal 32.0-36.0 [facility] Comment on above: Performed By: #### C MP, TSH reflex FT4, VITD, CBCAD, LIPD #### [facility] [address] [place], [place] [id number] MCV (RBC) [Entitic vol] 88 fL Normal 80-100 [facility] Comment on above: Performed By: #### C MP, TSH reflex FT4, VITD, CBCAD, LIPD #### [facility] [address], [place] [id number] Monocytes (Bld) [#/Vol] 0.6 10*3/uL Normal 0.2-0.9 [facility] Comment on above: Performed By: #### C MP, TSH reflex FT4, VITD, CBCAD, LIPD #### [facility] [address], [place] [id number] Monocytes/100 WBC (Bld) 9.4 % Normal [facility] Comment on above: Performed By: #### C MP, TSH reflex FT4, VITD, CBCAD, LIPD #### [facility] [address], [place] [id number] Neutrophils (Bld) [#/Vol] 3.9 10*3/uL Normal 1.5-7.8 [facility] Comment on above: Performed By: #### C MP, TSH reflex FT4, VITD, CBCAD, LIPD #### [facility] [address], [place] [id number] Neutrophils/100 WBC (Bld) 56.6 % Normal [facility] Comment on above: Performed By: #### C MP, TSH reflex FT4, VITD, CBCAD, LIPD #### [facility] [address], [place] [id number] Platelet mean volume (Bld) [Entitic vol] 9.30 fL Normal 7.50-12.50 [facility] [employer] Comment on above: Performed By: #### C MP, TSH reflex FT4, VITD, CBCAD, LIPD #### [facility] [address], [place] [id number] Platelets (Bld) [#/Vol] 286 10*3/uL Normal 140-400 [facility] [employer] Comment on above: Performed By: #### C MP, TSH reflex FT4, VITD, CBCAD, LIPD #### [facility] [address], [place] [id number] RBC (Bld) [#/Vol] 5.26 10*6/uL High 3.90-5.20 [facility] [employer] Comment on above: Performed By: #### C MP, TSH reflex FT4, VITD, CBCAD, LIPD #### [facility] [address], [place] [id number] RDW-SD 40.9 fL Normal 37.0-50.0 [facility] Specialist Comment on above: Performed By: #### C MP, TSH reflex FT4, VITD, CBCAD, LIPD #### [facility] [address], [place] [id number] WBC (Bld) [#/Vol] 6.8 10*3/uL Normal 3.8-11.0 Angie [facility] [employer] Operator Comment on above: Performed By: #### C MP, TSH reflex FT4, VITD, CBCAD, LIPD #### [facility] [address], [place] [id number] Comprehensive Metabolic Pane anibal 03-28-2021 Albumin [Mass/Vol] 4.9 g/dL Normal 3.6-5.1 Angie [place] [employer] Operator Comment on above: Performed By: #### C MP, TSH reflex FT4, VITD, CBCAD, LIPD #### [facility] [address], [place] [id number] Albumin/Globulin [Mass ratio] 3.1 {ratio} High 1.0-2.5 [place] [employer] Comment on above: Performed By: #### C MP, TSH reflex FT4, VITD, CBCAD, LIPD #### [facility] [address], [place] [id number] ALP [Catalytic activity/Vol] 91 U/L Normal 35-119 [facility] Specialist Comment on above: Performed By: #### C MP, TSH reflex FT4, VITD, CBCAD, LIPD #### [facility] [address], [place] [id number] ALT [Catalytic activity/Vol] 31 U/L Normal 6-33 [facility] Specialist Comment on above: Result Comment: 01/15 Female reference range changed. Performed By: #### C MP, TSH reflex FT4, VITD, CBCAD, LIPD #### [facility] [address], [place] [id number] Anion gap [Moles/Vol] 18 mmol/L Normal 12-20 [facility] Specialist Comment on above: Result Comment: Effe ctive 02/20/2019 reference range changed. Performed By: #### C MP, TSH reflex FT4, VITD, CBCAD, LIPD #### [facility] [address], [place] [id number] AST [Catalytic activity/Vol] 24 U/L Normal 9-34 [facility] Specialist Comment on above: Performed By: #### C MP, TSH reflex FT4, VITD, CBCAD, LIPD #### [facility] [address], [place] [id number] Bilirubin [Mass/Vol] 0.42 mg/dL Normal 0.30-1.20 [facility] Specialist Comment on above: Performed By: #### C MP, TSH reflex FT4, VITD, CBCAD, LIPD #### [facility] [address] [facility] [place] [id number] BUN/CREA 35 Ratio High 6-22 [facility] Specialist Comment on above: Performed By: #### C MP, TSH reflex FT4, VITD, CBCAD, LIPD #### [facility] [address] [facility] [place] [id number] Calcium [Mass/Vol] 10.1 mg/dL Normal 8.6-10.2 Angie stinson [place] [employer] Comment on above: Performed By: #### C MP, TSH reflex FT4, VITD, CBCAD, LIPD #### [facility] [address], [place] [id number] Chloride [Moles/Vol] 102 mmol/L Normal 98-107 [facility] Comment on above: Performed By: #### C MP, TSH reflex FT4, VITD, CBCAD, LIPD #### [facility] [address], [place] [id number] CO2 [Moles/Vol] 25 mmol/L Normal 20-31 [facility] [employer] Operator Comment on above: Performed By: #### C MP, TSH reflex FT4, VITD, CBCAD, LIPD #### [facility] [address], [place] [id number] Creatinine [Mass/Vol] 0.7 mg/dL Normal 0.6-1.4 [facility] [employer] Operator Comment on above: Performed By: #### C MP, TSH reflex FT4, VITD, CBCAD, LIPD #### [facility] [address], [place] [id number] eGFRAA 105 mL/min/1.73m2 Normal >60 [place] [employer] Operator Comment on above: Performed By: #### C MP, TSH reflex FT4, VITD, CBCAD, LIPD #### [facility] [address], [place] [id number] eGFRNAA 87 mL/min/1.73m2 Normal >60 [facility] [employer] Operator Comment on above: Performed By: #### C MP, TSH reflex FT4, VITD, CBCAD, LIPD #### [facility] [address], [place] [id number] Globulin (S) [Mass/Vol] 1.6 g/dL Low 1.9-3.7 [facility] [employer] Operator Comment on above: Performed By: #### C MP, TSH reflex FT4, VITD, CBCAD, LIPD #### [facility] [address], [place] [id number] Glucose [Mass/Vol] 110 mg/dL High 65-99 Angie stinson [place] [employer] Operator Comment on above: Result Comment: For FASTING Glucose --- ADA reference ranges: Normal 65-99 mg/dl Prediabetes 100-125 Diabetes >/= 126 Performed By: #### C MP, TSH reflex FT4, VITD, CBCAD, LIPD #### [facility] [address] [place], [place] [id number] Potassium [Moles/Vol] 4.5 mmol/L Normal 3.5-5.5 [facility] [employer] Machine Operator Comment on above: Performed By: #### C MP, TSH reflex FT4, VITD, CBCAD, LIPD #### [facility] [address] [place], [place] [id number] Protein [Mass/Vol] 6.5 g/dL Normal 6.1-8.1 Angie stinson [place] [employer] Operator Comment on above: Performed By: #### C MP, TSH reflex FT4, VITD, CBCAD, LIPD #### [facility] [address] [place], [place] [id number] Sodium [Moles/Vol] 141 mmol/L Normal 135-146 Angie stinson [place] [employer] Machine Operator Comment on above: Performed By: #### C MP, TSH reflex FT4, VITD, CBCAD, LIPD #### [facility] [address] [place], [place] [id number] Urea nitrogen [Mass/Vol] 24 mg/dL Normal 7-25 [facility] Pure Pak Machine Operator Comment on above: Performed By: #### C MP, TSH reflex FT4, VITD, CBCAD, LIPD #### [facility] [address] [place], [place] [id number] Lipid Panelon 03-28-2021 Cholesterol [Mass/Vol] 265 mg/dL High 125-200 [facility] [employer] Machine Operator Comment on above: Result Comment: Low risk < 200mg/dL Borderline risk 201-239 mg/dl High risk > or equal to 240 Performed By: #### C MP, TSH reflex FT4, VITD, CBCAD, LIPD #### [facility] [address] [place], [place] [id number] Cholesterol in HDL [Mass/Vol] 53 mg/dL Normal >40 [facility] Pure Pak Machine Operator Comment on above: Result Comment: High Cardiovascular Risk HDL <40 mg/dL Low Cardiovascular Risk HDL > or equal to 60 mg/dl Performed By: #### C MP, TSH reflex FT4, VITD, CBCAD, LIPD #### [facility] [address] [place], [place] [id number] Cholesterol in LDL [Mass/Vol] 176 mg/dL Normal [facility] Pure Pak Machine Operator Comment on above: Result Comment: LDL ATP III CLASSIFICATION LDL less than 100 mg/dl Optimal LDL 100-129 mg/dl Near or above optimal LDL 130-159 Borderline high LDL 160-189 High LDL greater than 189 mg/dl Very High Performed By: #### C MP, TSH reflex FT4, VITD, CBCAD, LIPD #### [facility] [address] [place], [place] [id number] Cholesterol in VLDL [Mass/Vol] 36 mg/dL Normal [facility] Pure Pak Machine Operator Comment on above: Performed By: #### C MP, TSH reflex FT4, VITD, CBCAD, LIPD #### [facility] [address] [place], [place] [id number] Cholesterol.total/Ch olesterol in HDL [Mass ratio] 5 {ratio} Normal [facility] Pure Pak Machine Operator Comment on above: Performed By: #### C MP, TSH reflex FT4, VITD, CBCAD, LIPD #### [facility] [address] [facility] [place] [id number] Triglyceride [Mass/Vol] 180 mg/dL High 30-150 [facility] Pure Pak Machine Operator Comment on above: Result Comment: TRIG ATPIII CLASSIFICATIONS TRIG less than 150 mg/dl Normal TRIG 150-199 mg/dl Borderline High TRIG 200-500 mg/dl High TRIG greather than 500 mg/dl Very High Performed By: #### C MP, TSH reflex FT4, VITD, CBCAD, LIPD #### [facility] [address] [facility] [place] [id number] Q - Aged based pap with appr opriate addition of HPVon 03-28-2021 COMMENT SEE NOTE Normal [facility] [employer] Pak Machine Operator Comment on above: Order Comment: [facility] performed at: [facility], [address] [facility], [address] [place] [address] - [facility], [place], [address], Cuprous Chloride Operator: Primo Whitten MD [facility] Collection Date/Time: [facility] Results Received Date/Time: [facility] Reported Date/Time: Result Comment: This order for age-based cervical cancer and STI screening follows ACOG guidelines(PB 168, 140, FNQ162). See individual assays for performing site location. Performed By: #### 9 1414, 41103 #### [facility] [address] [place] [address] Result Comment: EXPL ANATORY NOTE: The Pap is a screening test for cervical cancer. It is not a diagnostic test and is subject to false negative and false positive results. It is most reliable when a satisfactory sample, regularly obtained, is submitted with relevant clinical findings and history, and when the Pap result is evaluated along with historic and current clinical information. Q - THINPREP(R) TIS AND HPV MRNA E6/E7 RFL HPV 16/18/45on 03-28-2021 CLINICAL INFORMATION: Routine exam Normal [facility] Specialist Comment on above: Order Comment: [facility] performed at: [facility] ([facility] [address], Cuprous Chloride Operator: Primo Whitten MD [facility] Date/Time: [facility] Results Received Date/Time: [facility] Reported Date/Time: Performed By: #### 9 1414, [id number] #### [facility] [address] [place] [address] COMMENT: SEE NOTE Normal [facility] Specialist Comment on above: Order Comment: [facility] performed at: [facility], [address] [place] [address], [address] [place] [address], Cuprous Chloride Operator: Primo Whitten MD [facility] Date/Time: [facility] Results Received Date/Time: [facility] Reported Date/Time: Result Comment: This Pap test has been evaluated with computer assisted technology. Parabasal cells in smears that lack maturation due to atrophy or other hormonal reasons cannot be differentiated from transformation zone cells. Accordingly, presence or absence of endocervical or transformation zone components cannot be reported in this patient. Performed By: #### 9 1414, 91672 #### [facility] [address] [place] [address] FARM CONTRACTOR: SEE NOTE Normal Tr rush [place] [employer] Operator Comment on above: Order Comment: [facility] performed at: [facility], [facility], [address] [place] [address], [address] [place] [address], [address] [place] [address], Cuprous Chloride Operator: Primo Whitten MD [facility] Date/Time: [facility] Results Received Date/Time: [facility] Reported Date/Time: Result Comment: KMB, CT(ASCP) CT screening location: [employer] [place] [address]. Performed By: #### 9 1414, 37179 #### [facility] [address] [place] [address] HPV mRNA E6/E7 Not detected Normal Not Detected Angie stinson [place] [employer] Operator Comment on above: Order Comment: [facility] performed at: [facility], [address] [place] [address], [address] [place] [address], [address] [place] [address], Cuprous Chloride Operator: Primo Whitten MD [facility] Date/Time: [facility] Results Received Date/Time: [facility] Reported Date/Time: Result Comment: Meth odology: Seed Trucker-Mediated Amplification This assay detects E6/E7 viral messenger RNA (mRNA) from 14 high-risk HPV types (16,18,31,33,35,39,45,51,52,56,58,59,66,68). The analytical performance characteristics of this assay have been determined by [employer]. The modifications have not been cleared or approved by the FDA. This assay has been validated pursuant to the CLIA regulations and is used for clinical purposes. For additional information, please refer to http://education.PinPay.FonJax/faq/TBA553k4 (This link if provided for information/ educational purposes only.) Performed By: #### 9 1414, 88941 #### [facility] [address] [place] [address] INTERPRETATION/RESUL T: SEE NOTE Normal [facility] [employer] Machine Operator Comment on above: Order Comment: [facility] performed at: [facility], [facility], [address] [place] [address], [address] [place] [address], [address] [place] [address], Cuprous Chloride Operator: Primo Whitten MD [facility] Date/Time: [facility] Results Received Date/Time: [facility] Reported Date/Time: Result Comment: Nega tive for intraepithelial lesion or malignancy. Atrophic pattern; predominantly parabasal cells Performed By: #### 9 1414, 89860 #### [facility] [address] [place] [address] LMP: NONE GIVEN Normal [facility] Specialist Comment on above: Order Comment: [facility] performed at: [employer], [facility], [address] [place] [address], [address] [place] [address], [address] [place] [address], Cuprous Chloride Operator: Primo Whitten MD [facility] Date/Time: [facility] Results Received Date/Time: [facility] Reported Date/Time: Performed By: #### 9 1414, 04161 #### [facility] [address] [place] [address] PREV. BX: NONE GIVEN Normal [facility] Specialist Comment on above: Order Comment: [facility] performed at: [facility], [facility], [address] [place] [address], [address] [place] [address], [address] [place] [address], Cuprous Chloride Operator: Primo Whitten MD [facility] Date/Time: [facility] Results Received Date/Time: [facility] Reported Date/Time: Performed By: #### 9 1414, 37240 #### [facility] [address] [place] [address] PREV. PAP: NONE GIVEN Normal [facility] Pure Pak Machine Operator Comment on above: Order Comment: [facility] performed at: [facility], [facility], [address] [place] [address], [address] [place] [address], [address] [place] [address], Cuprous Chloride Operator: Primo Whitten MD [facility] Date/Time: [facility] Results Received Date/Time: [facility] Reported Date/Time: Performed By: #### 9 1414, 55030 #### [facility] [address] [place] [address] REVIEW FARM CONTRACTOR: SEE NOTE Normal [facility] Specialist Comment on above: Order Comment: [facility] performed at: [facility], [address] [place] [address], [address] [place] [address], [address] [place] [address], Cuprous Chloride Operator: Primo Whitten MD [facility] Date/Time: [facility] Results Received Date/Time: [facility] Reported Date/Time: Result Comment: HENNY STEVENS(ASCP) CT screening location: [employer] [place] [address]. Performed By: #### 9 1414, 49852 #### [facility] [address] [place] [address] SOURCE: None given Normal [facility] Specialist Comment on above: Order Comment: [facility] performed at: [facility], [address] [place] [address], [address] [place] [address], [address] [place] [address], Cuprous Chloride Operator: Primo Whitten MD [facility] Date/Time: [facility] Results Received Date/Time: [facility] Reported Date/Time: Performed By: #### 9 1414, 92496 #### [facility] [address] [place] [address] TSH w/ Reflex to Free T4on 0 03-28-2021 TSH 1.940 uIU/mL Normal 0.400-4.500 [facility] Pure Pak Machine Operator Comment on above: Performed By: #### C MP, TSH reflex FT4, VITD, CBCAD, LIPD ####[facility] [id number] [place], [place] [id number] Vitamin D 25-OHon 03-28-2021 VIT D 25 OH 42 ng/ml Normal >29 [facility] Pure Pak Machine Operator Comment on above: Result Comment: Ilsa min D Status Deficiency <20 ng/mL Insufficiency 20-29 ng/mL Optimal 30-100 ng/mL Possible Toxicity >=150 ng/mL Performed By: #### C MP, TSH reflex FT4, VITD, CBCAD, LIPD ####[facility] [id number] [place], [place] [id number] US Venous, Unilat, Lower Ext Righton 01-30-2021 US Venous, Unilat, Lower Ext Right HISTORY: Right leg pain, fall x 2 days FINDINGS: The deep venous system of the right lower extremity exhibits full compressibility and normal flow augmentation. These specifically include the common femoral, superficial femoral, and popliteal veins. No evidence of deep venous thrombosis is present. No cystic or soft tissue mass in the popliteal fossa. Sonographic evaluation targeted to the anterior thigh demonstrates no underlying hematoma or abnormal fluid collection. IMPRESSION: Normal venous sonogram. No deep venous thrombosis. Report reported and signed by Olegario Giron on 01/30/2021 1041 Normal [facility] [employer] Machine Operator XR Femur Righton 01-30-2021 XR Femur Right FINDINGS: No fracture or dislocation. Minimal hip/knee arthritis. No abnormal periosteasl reaction. Normal soft tissues. IMPRESSION: Normal Report reported and signed by Olegario Giron on 01/30/2021 0942 Normal [facility] Vital Signs Date Time Vital Sign Value Performing Clinician Facility 11-30-2024 09:05-0400 Body height 152.4 cm [employer] Phone: [facility] 11-30-2024 09:05-0400 Body mass index (BMI) [Ratio] 37.3 kg/m2 [employer] Work Phone: [facility] 11-30-2024 09:05-0400 Body weight 86.64 kg [employer] Work Phone: [facility] 11-30-2024 09:05-0400 Diastolic blood pressure 76 mm[Hg] [employer] Phone: [facility] 11-30-2024 09:05-0400 Systolic blood pressure 128 mm[Hg] [employer] Work Phone: [facility] 11-10-2024 09:09-0400 Body height 152.4 cm Assumpta Antonella SALEHN-POINT OF CARE SPECIALIST Work Phone: [facility] 11-10-2024 09:09-0400 Body mass index (BMI) [Ratio] 37.09 kg/m2 Assumpta Antonella EQUIPMENT WORKER-POINT OF CARE SPECIALIST Work Phone: [facility] 11-10-2024 09:09-0400 Body temperature 98.01 [degF] Assumpta Antonella EQUIPMENT WORKER-POINT OF CARE SPECIALIST Work Phone: [facility] 11-10-2024 09:09-0400 Body weight 86.14 kg Assumpta Antonella EQUIPMENT WORKER-POINT OF CARE SPECIALIST Work Phone: [facility] 11-10-2024 09:09-0400 Diastolic blood pressure 70 mm[Hg] Assumpta Antonella SALEHN-POINT OF CARE SPECIALIST Work Phone: [facility] 11-10-2024 09:09-0400 Heart rate 64 /min Assumpta Antonella SALEHN-POINT OF CARE SPECIALIST Work Phone: [facility] 11-10-2024 09:09-0400 SaO2% (BldA) [Mass fraction] 98 % Assumpta Antonella SALEHN-POINT OF CARE SPECIALIST Work Phone: [facility] 11-10-2024 09:09-0400 Systolic blood pressure 122 mm[Hg] Assumpta Antonella SALEHN-POINT OF CARE SPECIALIST Work Phone: [facility] 10-30-2024 13:12-0400 Body mass index (BMI) [Ratio] 37.69 kg/m2 Cameron Myers DO Work Phone: [facility] 10-30-2024 13:12-0400 Body temperature 98.01 [degF] Cameron Myers DO Work Phone: [facility] 10-30-2024 13:12-0400 Body weight 87.54 kg Cameron Myers DO Work Phone: [facility] 10-30-2024 13:12-0400 Diastolic blood pressure 80 mm[Hg] Cameron Myers DO Work Phone: [facility] 10-30-2024 13:12-0400 Heart rate 54 /min Cameron Myers DO Work Phone: [facility] 10-30-2024 13:12-0400 SaO2% (BldA) [Mass fraction] 98 % Cameron Myers DO Work Phone: [facility] 10-30-2024 13:12-0400 Systolic blood pressure 132 mm[Hg] Cameron Myers DO Work Phone: [facility] 08-30-2024 09:14-0400 Body mass index (BMI) [Ratio] 36.6 kg/m2 Cameron Myers DO Work Phone: [facility] 08-30-2024 09:14-0400 Body temperature 97.9 [degF] Cameron Myers DO Work Phone: [facility] 08-30-2024 09:14-0400 Body weight 85 kg Cameron Myers DO Work Phone: [facility] 08-30-2024 09:14-0400 Diastolic blood pressure 78 mm[Hg] Cameron Myers DO Work Phone: [facility] 08-30-2024 09:14-0400 Heart rate 54 /min Cameron Myers DO Work Phone: [facility] 08-30-2024 09:14-0400 SaO2% (BldA) [Mass fraction] 97 % Cameron Myers DO Work Phone: [facility] 08-30-2024 09:14-0400 Systolic blood pressure 132 mm[Hg] Cameron Myers DO Work Phone: [facility] 08-04-2024 09:30-0400 Body mass index (BMI) [Ratio] 36.52 kg/m2 Cameron Myers DO Work Phone: [facility] 08-04-2024 09:30-0400 Body temperature 97.9 [degF] Cameron Myers DO Work Phone: [facility] 08-04-2024 09:30-0400 Body weight 84.82 kg Cameron Myers DO Work Phone: [facility] 08-04-2024 09:30-0400 Diastolic blood pressure 72 mm[Hg] Cameron Myers DO Work Phone: [facility] 08-04-2024 09:30-0400 Heart rate 57 /min Cameron Myers DO Work Phone: [facility] 08-04-2024 09:30-0400 SaO2% (BldA) [Mass fraction] 97 % Cameron Myers DO Work Phone: [facility] 08-04-2024 09:30-0400 Systolic blood pressure 130 mm[Hg] Cameron Myers DO Work Phone: [facility] 07-20-2024 11:40-0400 Body height 152.4 cm Edd Bruno MD Work Phone: [facility] 07-20-2024 11:40-0400 Body mass index (BMI) [Ratio] 36.72 kg/m2 Edd Bruno MD Work Phone: [facility] 07-20-2024 11:40-0400 Body weight 85.28 kg Edd Bruno MD Work Phone: [facility] 07-20-2024 11:40-0400 Diastolic blood pressure 78 mm[Hg] Edd Bruno MD Work Phone: [facility] 07-20-2024 11:40-0400 Heart rate 59 /min Edd Burno MD Work Phone: [facility] 07-20-2024 11:40-0400 SaO2% (BldA) [Mass fraction] 97 % Edd Bruno MD Work Phone: [facility] 07-20-2024 11:40-0400 Systolic blood pressure 130 mm[Hg] Edd Bruno MD Work Phone: [facility] 02-24-2024 08:47-0500 Body height 152.4 cm Allison Corona MD Work Phone: [facility] 02-24-2024 08:47-0500 Body mass index (BMI) [Ratio] 35.54 kg/m2 Allison Corona MD Work Phone: [facility] 02-24-2024 08:47-0500 Body weight 82.56 kg Allison Corona MD Work Phone: [facility] 02-24-2024 08:47-0500 Diastolic blood pressure 76 mm[Hg] Allison Corona MD Work Phone: [facility] 02-24-2024 08:47-0500 Heart rate 54 /min Allison Corona MD Work Phone: [facility] 02-24-2024 08:47-0500 SaO2% (BldA) [Mass fraction] 97 % Allison Corona MD Work Phone: [facility] 02-24-2024 08:47-0500 Systolic blood pressure 122 mm[Hg] Allison Corona MD Work Phone: [facility] 01-27-2024 12:02-0500 Body mass index (BMI) [Ratio] 36.36 kg/m2 Janet WARREN Work Phone: [facility] 01-27-2024 12:02-0500 Body weight 84.46 kg Janet WARREN Work Phone: [facility] 11-29-2023 14:28-0400 Body mass index (BMI) [Ratio] 35.18 kg/m2 Devin Kendrick DO Work Phone: [facility] 11-29-2023 14:28-0400 Body weight 81.7 kg Devin Kendrick DO Work Phone: [facility] 11-29-2023 14:28-0400 Diastolic blood pressure 70 mm[Hg] Devin Kendrick DO Work Phone: [facility] 11-29-2023 14:28-0400 Systolic blood pressure 130 mm[Hg] Devin Kendrick DO Work Phone: [facility] Healthcare Encounters Encounter Date Encounter Type Care Provider Facility Start: 11-30-2024 End: 11-30-2024 Bamboo flowsheet Devin Kendrick DO Work Phone: [facility] Start: 11-30-2024 End: 11-30-2024 Bamboo flowsheet Devin Kendrick DO Work Phone: [facility] Start: 11-30-2024 End: 11-30-2024 Patient encounter procedure Devin Kendrick DO Work Phone: [facility] Start: 11-30-2024 End: 11-30-2024 Periodic preventive med est patient 40-64yrs Devin Kendrick DO Work Phone: [facility] Comment on above: Well woman exam with routine gynecological exam; Encounter for screening mammogram for malignant neoplasm of breast; Osteoporosis, post-menopausal; Urinary tract infection without hematuria, site unspecified Start: 11-15-2024 ambulatory [facility] Start: 11-10-2024 End: 11-10-2024 Office outpatient visit 15 minutes Assumjb Flores EQUIPMENT WORKER-POINT OF CARE SPECIALIST [facility] Phone: [facility] Comment on above: Acute bilateral low back pain with right-sided sciatica (Primary Dx) Start: 11-10-2024 End: 11-10-2024 ambulatory ASSUMPTA N TRISTIANROLANDO [facility] Start: 11-03-2024 End: 11-03-2024 Lebron Ziegler [facility] Comment on above: Acute bilateral low back pain with sciatica, sciatica laterality unspecified (Primary Dx); Bulging of lumbar intervertebral disc Start: 10-31-2024 ambulatory [facility] Start: 10-30-2024 End: 10-30-2024 Orders Only Hi Tolbert MD [facility] Comment on above: Bulging of lumbar in tervertebral disc (Primary Dx); Acute bilateral low back pain with sciatica, sciatica laterality unspecified Start: 10-30-2024 End: 10-30-2024 Office outpatient visit 15 minutes Cameron Myers DO Work Phone: [facility] Comment on above: Acute bilateral low back pain with right-sided sciatica (Primary Dx) Start: 10-26-2024 End: 10-26-2024 Emergency department patient visit HI TOLBERT [facility] Start: 10-04-2024 End: 10-10-2024 Refill Ashwini Gomez RN [facility] Comment on above: Med Refill Start: 08-30-2024 End: 08-30-2024 Patient encounter status Cameron Myers DO Work Phone: [facility] Work Phone: Start: 08-30-2024 End: 08-30-2024 Periodic preventive med est patient 40-64yrs Cameron Myers DO Work Phone: [facility] Comment on above: Healthcare maintenan (Primary Dx); Obesity (BMI 35.0-39.9 without comorbidity); Prediabetes; 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 Start: 08-30-2024 End: 08-30-2024 ambulatory [facility] Start: 08-30-2024 Encounter for genera l adult medical examination without abnormal findings [facility] Start: 08-14-2024 End: 08-14-2024 Telephone encounter [facility] Work Phone: [facility] Medication Management Start: 08-04-2024 End: 08-04-2024 Office outpatient visit 15 minutes Cameron Myers DO Work Phone: [facility] Comment on above: Obesity (BMI 35.0-39 .9 without comorbidity) (Primary Dx); Hyperglycemia; Prediabetes Start: 08-04-2024 End: 08-04-2024 [facility] Start: 07-20-2024 End: 07-20-2024 Office outpatient visit 25 minutes Edd Bruno MD Work Phone: [facility] Comment on above: Hx of non-ST elevati on myocardial infarction (NSTEMI) (Primary Dx); Shortness of breath; Hx of CABG; Obesity (BMI 30-39.9) Start: 07-20-2024 End: 07-20-2024 ambulatory [facility] Start: 07-14-2024 [facility] Start: 04-11-2024 End: 04-14-2024 Refill Ricco Henderson EQUIPMENT WORKER-POINT OF CARE SPECIALIST Work Phone: [facility] Comment on above: Med Refill Start: 04-07-2024 End: 04-10-2024 Refill Marilyn Harris EQUIPMENT WORKER-POINT OF CARE SPECIALIST Work Phone: [facility] Comment on above: Med Refill Start: 03-06-2024 End: 03-06-2024 [facility] Start: 02-24-2024 End: 02-24-2024 Office outpatient visit 25 minutes Allison Corona MD Work Phone: [facility] Comment on above: Hx of non-ST elevati on myocardial infarction (NSTEMI) (Primary Dx); Shortness of breath Start: 02-24-2024 End: 02-24-2024 [facility] Start: 02-23-2024 End: 02-23-2024 Telephone encounter Pretty Agudelo CMA [facility] Start: 01-27-2024 End: 01-27-2024 Bamboo flowsheet Janet AWRREN Work Phone: [facility] Start: 01-27-2024 End: 01-27-2024 Bamboo flowsheet Janet WARREN Work Phone: [facility] Start: 01-27-2024 End: 01-27-2024 Office outpatient visit 15 minutes Janet WARREN Work Phone: [facility] Comment on above: Vaginal cysts; Folliculitis; Itching in the vaginal area; Yeast infection Start: 01-27-2024 End: 01-27-2024 ambulatory JANET HARRIS Not Available Start: 01-19-2024 End: 01-19-2024 ambulatory [facility] Start: 01-10-2024 End: 01-10-2024 ambulatory [facility] Start: 01-10-2024 ambulatory GI Sergio [facility] Start: 11-29-2023 End: 11-29-2023 Patient encounter procedure Devin Kendrick DO Work Phone: [facility] Healthcare Work Phone: Start: 11-29-2023 End: 11-29-2023 Periodic preventive med est patient 40-64yrs Devin Kendrick DO Work Phone: [facility] Comment on above: Well woman exam with routine gynecological exam; Breast cancer screening by mammogram; Osteopenia, unspecified location; Fatigue, unspecified type; Hair loss; Unable to lose weight Start: 11-29-2023 End: 11-29-2023 Bamboo flowsheet Devin Kendrick DO Work Phone: [facility] Start: 11-29-2023 End: 12-07-2023 Bamboo flowsheet Devin Kendrick DO Work Phone: [facility] Start: 11-29-2023 End: 12-07-2023 Clinisync Result Encounter Devin Kendrick DO Work Phone: [facility] External Department Unsolicited Start: 11-29-2023 End: 11-29-2023 ambulatory DEVIN KENDRICK Not Available Start: 11-25-2023 End: 11-25-2023 ambulatory [facility] Start: 02-19-2023 End: 02-20-2023 ambulatory [facility] Facility:[facility] Start: 11-13-2022 ambulatory [facility] Facility:[facility] Start: 06-25-2022 End: 06-25-[address] DEVIN MARKS . Facility: Start: 06-24-2022 Encounter for preprocedural laboratory examination DR DEVIN MARKS . [facility] Start: 06-17-2022 End: 06-18-[address] DEVIN MARKS . Facility: Start: 06-17-2022 End: 06-18-2022 Encounter for preprocedural laboratory examination DR DEVIN MARKS . Facility: Procedures Date Procedure Procedure Detail Performing Clinician Start: 11-30-2024 Urnls dip stick/tabl et rgnt non-auto w/o micrscp Devin Marks DO Work Phone: Start: 11-10-2024 Adult depression scr eening assessment Assumpta Nnaji EQUIPMENT WORKER-POINT OF CARE SPECIALIST Work Phone: Start: 10-30-2024 Adult depression scr eening assessment Cameron Myers DO Work Phone: Start: 08-30-2024 Adult depression scr eening assessment Cameron Myers DO Work Phone: Start: 08-04-2024 Hemoglobin glycosyla sharlene a1c Cameron Myers DO Work Phone: Start: 08-04-2024 Adult depression scr eening assessment Cameron Myers DO Work Phone: Start: 02-24-2024 Ecg routine ecg w/le ast 12 lds w/i&r Allison Corona MD Work Phone: Start: 01-11-2024 Mammography Janet WARREN Work Phone: Start: 11-29-2023 IGP,APTIMA HPV,AGE GDLN Devin Marks DO Work Phone: Start: 11-29-2023 Microscopic observat ion [Identifier] in Cervix by Cyto stain Devin Marks DO Work Phone: Start: 11-29-2023 Cytp cerv/vag auto t hin layer prep mnl screen Devin Kendrick DO Work Phone: Start: 11-25-2023 Follow-up visit Follow-up IAN PIKE Start: 09-22-2023 Adult depression scr eening assessment Pretty Agudelo [employer]NING REPAIRER Start: 11-20-2022 Mammography Devin Fazi o DO Work Phone: Start: 03-28-2021 Microscopic observat ion [Identifier] in Cervix by Cyto stain Devin Kendrick DO Work Phone: Start: 08-15-2018 Colonoscopy Devin Fazi o DO Work Phone: History of coronary artery bypass grafting Hx of CABG Edd Bruno MD Work Phone: Plan of Treatment Date Care Activity Detail Author Start: 08-15-2028 Screening for malign ant neoplasm of colon [facility] Start: 11-28-2026 Screening for malign ant neoplasm of cervix [facility] Start: 03-28-2026 Screening for malign ant neoplasm of cervix [facility] Start: 12-10-2025 End: 12-10-2025 Patient encounter procedure 12/10/2025 9:00 AM EDT Procedure Visit [facility] [address] [place] [address] Devin Marks, DO [address] [place] [address] [facility] Start: 11-17-2025 DTaP,Tdap and Td Vaccines (2 - Td or Tdap) DTaP,Tdap and Td Vaccines (2 - Td or Tdap) [facility] Start: 11-10-2025 Adult BMI Screening Adult BMI Screen ing [facility] Start: 11-10-2025 Depression Screening Depression Scre ening [facility] Start: 11-10-2025 Tobacco Screening Tobacco Screening [facility] Start: 10-30-2025 Adult BMI Screening Adult BMI Screen ing [facility] Start: 10-30-2025 Depression Screening Depression Scre ening [facility] Start: 10-30-2025 Tobacco Screening Tobacco Screening [facility] Start: 08-30-2025 Adult BMI Screening Adult BMI Screen ing [facility] Start: 08-30-2025 Depression Screening Depression Scre ening [facility] Start: 08-04-2025 Adult BMI Screening Adult BMI Screen ing [facility] Start: 08-04-2025 Depression Screening Depression Scre ening [facility] Start: 08-04-2025 Tobacco Screening Tobacco Screening [facility] Start: 07-20-2025 Adult BMI Screening Adult BMI Screen ing [facility] Start: 07-20-2025 Tobacco Screening Tobacco Screening [facility] Start: 03-06-2025 Adult BMI Screening Adult BMI Screen ing [facility] Start: 03-06-2025 Tobacco Screening Tobacco Screening [facility] Start: 02-23-2025 Adult BMI Screening Adult BMI Screen ing [facility] Start: 02-23-2025 Tobacco Screening Tobacco Screening [facility] Start: 02-22-2025 End: 02-22-2025 Patient encounter procedure 02/22/2025 10:15 AM EST Office Visit [facility] [address] [place] [address] Hi Tolbert MD [address], [place] [address] [facility] Start: 01-22-2025 End: 01-22-2025 Patient encounter procedure [facility] Start: 01-18-2025 Adult BMI Screening Adult BMI Screen ing [facility] Start: 01-18-2025 Tobacco Screening Tobacco Screening [facility] Start: 01-10-2025 Screening for malign ant neoplasm of breast Mammogram [facility] Start: 11-30-2024 End: 11-30-2025 DXA Skeletal system Views for bone density DEXA bone density Imaging Routine Osteoporosis, post-menopausal Expected: 11/30/2024 (Approximate), Expires: 11/30/2025 [facility] Comment on above: Expected: 11/30/2024 (Approximate), Expires: 11/30/2025 Start: 11-30-2024 End: 01-30-2026 MG Breast - bilateral Screening Bilateral screening mammogram Imaging Routine Encounter for screening mammogram for malignant neoplasm of breast Expected: 11/30/2024 (Approximate), Expires: 01/30/2026 [facility] Work Phone: Comment on above: Expected: 11/30/2024 (Approximate), Expires: 01/30/2026 Start: 11-30-2024 End: 11-30-2024 Patient encounter procedure [facility] Comment on above: Arrived Start: 11-13-2024 End: 11-13-2024 Patient encounter procedure 11/13/2024 8:[address] [facility] [address] [place] [phone] Acute bilateral low back pain with right-sided sciatica [facility] Comment on above: Acute bilateral low back pain with right-sided sciatica Start: 11-10-2024 End: 11-10-2024 Patient encounter procedure 11/10/2024 9:20 AM EDT Office Visit [facility] [address] [place] [address] [place] [address] Michelle Flores N, EQUIPMENT WORKER-POINT OF CARE SPECIALIST [address] [place] [address] [facility] Start: 10-16-2024 COVID-19 Vaccine ( season) COVID-19 Vaccine ( season) [facility] Start: 10-16-2024 Influenza vaccination [facility] Start: 09-29-2024 End: 09-29-2024 Patient encounter procedure 09/29/2024 8:30 AM EDT Office Visit [facility] [address] [place] [address] [place] [address] Cameron Myers, [address] [facility] [address] [place] [address] [facility] Start: 09-21-2024 Depression Screening Depression [facility] Start: 09-01-2024 End: 09-01-2024 Clinical Support 09/01/2024 9:00 AM EDT Clinical Support [facility] Medication Management [address] [place] [address] [facility] Medication Management Start: 08-30-2024 End: 08-30-2024 Patient encounter procedure 08/30/2024 9:30 AM EDT Office Visit [facility] [address] [place] [address] [place] [phone] Cameron Myers, [address] [facility] [place], [place] [id number] [facility] Start: 03-28-2024 Screening for malign ant neoplasm of cervix Pap Smear [facility] Start: 03-06-2024 End: 03-06-2024 Patient encounter procedure [facility] Start: 03-02-2024 End: 02-23-2025 NM Heart Perfusion W adenosine and W radionuclide IV Nuc stress Lexiscan/Exercise Cardiac Services Routine Shortness of breath Expected: 03/02/2024, Expires: 02/23/2025 [facility] Work Phone: Comment on above: Expected: 03/02/2024 , Expires: 02/23/2025 Start: 02-24-2024 End: 02-24-2024 Patient encounter procedure 02/24/2024 8:45 AM EST Office Visit [facility] [address] [phone] Allison Corona MD [address] [place] [address] [facility] Start: 01-27-2024 End: 01-27-2024 Patient encounter procedure 01/27/2024 11:30 AM EST Office Visit [facility] [address] [place] [address] Janet Harris PA [address] [place], [place] [id number] Arrived [facility] Comment on above: Arrived Start: 11-29-2023 End: 11-29-2023 Patient encounter procedure 11/29/2023 2:20 PM EDT Office Visit [facility] [address] [place] [address] Devin Marks DO [address] [place], [place] [phone] Arrived [facility] Comment on above: Arrived Start: 11-29-2023 End: 11-28-2024 DXA Skeletal system Views for bone density DEXA bone density Imaging Routine Osteopenia, unspecified location Expected: 11/29/2023 (Approximate), Expires: 11/28/2024 [facility] Comment on above: Expected: 11/29/2023 (Approximate), Expires: 11/28/2024 Start: 11-29-2023 End: 01-28-2025 MG Breast - bilateral Screening Bilateral screening mammogram Imaging Routine Breast cancer screening by mammogram Expected: 11/29/2023, Expires: 01/28/2025 [facility] Work Phone: Comment on above: Expected: 11/29/2023 , Expires: 01/28/2025 Start: 11-21-2023 Screening for malign ant neoplasm of breast Mammogram [facility] Start: 10-17-2023 COVID-19 Vaccine ( season) COVID-19 Vaccine ( season) [facility] Start: 10-17-2023 Influenza vaccination N [facility] Start: 1978 Adult BMI Follow Up Plan Adult BMI Follow Up Plan [facility] Start: 1960 Screening for malign ant neoplasm of colon [facility] CHLAMYDIA TRACHOMATI S (GENITO/STI) CHLAMYDIA TRACHOMATIS (GENITO/STI) Lab Routine Vaginal cysts Folliculitis Itching in the vaginal area Ordered: 01/27/2024 [facility] Comment on above: Ordered: 01/27/2024 Neisseria gonorrhoea e DNA [Presence] in Unspecified specimen by MICHELE with probe detection Neisseria gonorrhea DNA probe, direct Lab Routine Vaginal cysts Folliculitis Itching in the vaginal area Ordered: 01/27/2024 [facility] Comment on above: Ordered: 01/27/2024 SURESWAB(R) ADVANCED VAGINITIS PLUS, TMA SURESWAB(R) ADVANCED VAGINITIS PLUS, TMA Pathology and Cytology Routine Vaginal cysts Folliculitis Itching in the vaginal area Ordered: 01/27/2024 [facility] Work Phone: Comment on above: Ordered: 01/27/2024 THIN PREP TIS PAP AN D HR HPV DNA THIN PREP TIS PAP AND HR HPV DNA Pathology and Cytology Routine Well woman exam with routine gynecological exam Ordered: 11/29/2023 [facility] Comment on above: Ordered: 11/29/2023 THIN PREP TIS PAP AN D HR HPV DNA THIN PREP TIS PAP AND HR HPV DNA Pathology and Cytology Routine Well woman exam with routine gynecological exam Ordered: 11/30/2024 [facility] Comment on above: Ordered: 11/30/2024 Immunizations Immunization Date Immunization Notes Care Provider Talita long 06-29-2020 zoster vaccine recombinant Pretty [facility] 12-13-2019 influenza, injectabl e, quadrivalent, preservative free Pretty Agudelo [facility] 12-13-2019 zoster vaccine recombinant Pretty [facility] 12-13-2019 influenza virus vacc ine, unspecified formulation Devin Marks DO Work Phone: [facility] 03-15-2018 hepatitis A vaccine, adult dosage Pretty [facility] 03-15-2018 influenza, injectabl e, quadrivalent, contains preservative Prettyjose miguel Agudelo [facility] 03-15-2018 measles, mumps and rubella virus vaccine Pretty [facility] 03-15-2018 typhoid capsular polysaccharide vaccine Pretty [facility] 11-18-2015 tetanus toxoid, redu kasi diphtheria toxoid, and acellular pertussis vaccine, adsorbed Pretty Magnus [facility] Payers Date Payer Category Payer Commercial Managed C are - POS [employer] [id number] 2023 Managed Care O (unspecified) [employer] [id number] 2023 Private Health Insurance [id number] 1960 Unknown [id number] [id number] 9.2.593 1960 Unknown [id number] 2.16.840.1.494833.3.57 9.2.593 1960 Unknown [id number] 2.16.840.1.187133.3.57 9.2.718 1960 Unknown [id number] 2.16840.1.352545.3.57 9.2.1259 1960 Unknown [id number] 2.16.840.1.526464.3.57 9.2.1259 1960 Unknown [id number] 2.16.840.1.539513.3.57 9.2.1286 1960 Unknown [id number] 2.16.840.1.395447.3.57 9.2.1286 1960 Unknown [id number] 2.16.840.1.352297.3.57 9.2.1286 1960 Unknown [id number] 2.16.840.1.942689.3.57 9.2.128 1960 Unknown [id number] 2.16.840.1.479916.3.57 9.2.128 1960 Unknown [id number] 2.16.840.1.152196.3.57 9.2.128 1960 Unknown [id number] 2..840.1.070835.3.57 9.2.128 1960 Unknown [id number] 2.16.840.1.605581.3.57 9.2.128 1960 Unknown [id number] 2.16.840.1.467764.3.57 9.2.128 1960 Unknown [id number] 2.16.840.1.044158.3.57 9.2.128 1960 Unknown [id number] 2.16.840.1.709584.3.57 9.2.128 1960 Unknown [id number] 2.16.840.1.246696.3.57 9.2.128 1960 Unknown [id number] 2.16.840.1.311613.3.57 9.2.128 1960 Unknown [id number] 2.16.840.1.936793.3.57 9.2.128 1960 Unknown [id number] 2.16.840.1.178741.3.57 9.2.1286 1959 Unknown [id number] Social History Date Type Detail Facility Start: 03-26-2022 End: 10-29-2022 Tobacco smoking status NHIS Never smoked tobacco [facility] Start: 11-12-2022 End: 11-29-2023 Alcoholic beverage intake Current drinker of alcohol (finding) [facility] Start: 11-12-2022 End: 11-29-2023 History of Social function [facility] Start: 11-12-2022 End: 11-29-2023 Tobacco use panel [facility] Start: 10-29-2022 Alcohol Comment Alcohol: 1 or 2 drinks on a typical day / 2 to 4 times a month. Caffeine: 1-2 cups/day [facility] Start: 1960 Sex assigned at Female N [facility] Start: 07-07-2022 Gender identity Identifies as female gender (finding) [facility] Start: 03-26-2022 Tobacco use and exposure Smoke less tobacco non-user [facility] Start: 04-29-2022 Frequency of Alcohol Consumption 2-4 times a month [facility] How hard is it for y ou to pay for the very basics like food, housing, medical care, and heating Somewhat hard [facility] Start: 02-19-2023 Alcohol Comment weekends [facility] Start: 1960 Sex assigned at Not on file P [facility] Start: 09-20-2014 Sex Female (finding) [facility] Start: 08-04-2024 Alcohol Comment once or twice a shirley h [facility] Goals Date Patient Goal Desired Activity /State Personal health goal Comment on above: Formatting of this n ote might be different from the original. Evaluation of progress towards goal: Pt like to discharge home with self care and support of spouse. Clinical Notes 03-28-2021 to 11-30-2024 Annika Barakat LPN - 11/30/2024 9:00 AM LINN Gupta - 11/10/2024 9:20 AM Gabbi Tolbert MD - 10/30/2024 4:42 PM Farzana Myers DO - 10/30/2024 1:00 PM EDT Note Date & Type Note Facility 11-30-2024 History of Presen t illness Narrative Reason for Appointment: Patient ID: Prema Field is a 64 y.o. female who presents for Gynecologic Exam Patient presents today for Annual Exam. MEDICATIONS Current Outpatient Medications Medication Instructions acetaminophen (TYLENOL) 1,000 mg, Every 6 hours PRN aspirin (ASPIRIN) 81 mg, Every 24 hours atorvastatin (LIPITOR) 20 mg, Daily RT ciprofloxacin (CIPRO) 500 mg, Oral, 2 times daily colchicine 0.6 mg, Every morning isosorbide mononitrate ER (Imdur) 30 MG 24 hr tablet 1 tablet, Daily latanoprost (Xalatan) 0.005 % ophthalmic solution 1 drop, Nightly lisinopril 5 mg, Daily RT metFORMIN XR (Glucophage-XR) 500 MG 24 hr tablet TAKE 1 TABLET BY MOUTH IN THE EVENING. TAKE WITH MEALS DO NOT CRUSH, CHEW, OR SPLIT. metoprolol tartrate (LOPRESSOR) 50 mg, 2 times daily Multiple Vitamins-Minerals (Multi Complete) capsule 1 tablet, Daily ALLERGIES Allergies[1] PROBLEMS Active Ambulatory Problems Diagnosis Date Noted Hair loss 11/29/2023 Unable to lose weight 11/29/2023 Folliculitis 01/27/2024 Resolved Ambulatory Problems Diagnosis Date Noted No Resolved Ambulatory Problems Past Medical History: Diagnosis Date Adenomatous colon polyp Allergic rhinitis Breast cancer screening by mammogram 04/03/2021 Cellulitis, perineum Diverticulitis Diverticulosis of colon Epidermal inclusion cyst Essential (primary) hypertension Glaucoma Hemoglobin A1c above reference range Hyperlipidemia, mixed Influenza Kidney stones Low back pain Menopause present Migraine Obesity Obesity (BMI 30-39.9) Obstructive sleep apnea Ocular rosacea Other rhinitis Pap smear for cervical cancer screening 03/28/2021 Sebaceous cyst Skin ulcer of perineum, limited to breakdown of skin (HCC) Temporomandibular joint disorder Vitamin D deficiency Vulvar cellulitis HISTORY PAST MEDICAL HISTORY SOCIAL HISTORY Medical History[2] Social History Tobacco Use Smoking status: Never Smokeless tobacco: Not on file Substance Use Topics Alcohol use: Yes Comment: Alcohol: 1 or 2 drinks on a typical day / 2 to 4 times a month. Caffeine: 1-2 cups/day Drug use: Never FAMILY HISTORY Family History[3] SURGICAL HISTORY Surgical History[4] REVIEW OF SYSTEMS Review of Systems: Review of Systems Constitutional: Negative. HENT: Negative. Eyes: Negative. Respiratory: Negative. Cardiovascular: Negative. Gastrointestinal: Negative. Genitourinary: Negative. Musculoskeletal: Negative. Skin: Negative. Neurological: Negative. All other systems reviewed and are negative. Hematological: Negative. Endocrine: Negative. Allergic/Immunologic: Negative. OBJECTIVE Objective: Physical Exam Constitutional: Appearance: Normal appearance. She is well-developed. Genitourinary: Vulva normal. Breasts: Breasts are soft. Right: Normal. Left: Normal. Cardiovascular: Rate and Rhythm: Normal rate and regular rhythm. Pulmonary: Effort: Pulmonary effort is normal. Breath sounds: Normal breath sounds. Abdominal: General: Bowel sounds are normal. There is no distension. Palpations: Abdomen is soft. Tenderness: There is no abdominal tenderness. There is no guarding or rebound. Musculoskeletal: General: No swelling. Normal range of motion. Right lower leg: No edema. Left lower leg: No edema. Neurological: Mental Status: She is alert and oriented to person, place, and time. Skin: General: Skin is warm and dry. Psychiatric: Mood and Affect: Mood normal. Behavior: Behavior normal. Vitals and nursing note reviewed. Exam conducted with a pretzel cooker present. Vitals: Estimated body mass index is 37.3 kg/m as calculated from the following: Height as of this encounter: 5'. Weight as of this encounter: 191 lb. BP: 128/76 No LMP recorded (lmp unknown). Patient is postmenopausal. ASSESSMENT & PLAN ICD-10-CM 1. Well woman exam with routine gynecological exam Z01.419 THIN PREP TIS PAP AND HR HPV DNA 2. Encounter for screening mammogram for malignant neoplasm of breast Z12.31 Bilateral screening mammogram Bilateral screening mammogram 3. 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 Urinary tract infection without hematuria, site unspecified N39.0 POCT urinalysis dipstick manually resulted ciprofloxacin (Cipro) 500 MG tablet CANCELED: POCT , urine manually resulted Annual: Patient presents today for an annual exam. Patient states she is doing well and has no complaints. Pap was obtained without difficulty and patient given mammogram order to have scheduled/obtained. Complaints of UTI symptoms medication sent to pharmacy. Orders Placed This Encounter Procedures Bilateral screening mammogram DEXA bone density POCT urinalysis dipstick manually resulted Follow Up: Patient is to return in one year for annual unless needed otherwise. Documented by Annika Barakat LPN on behalf of: Devin Marks DO [1] Allergies Allergen Reactions Penicillins Rosuvastatin Sulfated Tallow Sodium Salt Sulfa Antibiotics Rash [2] Past Medical History: Diagnosis Date Adenomatous colon polyp tubular adenoma Allergic rhinitis Breast cancer screening by mammogram 04/03/2021 neg Cellulitis, perineum Diverticulitis Diverticulosis of colon mod sigmoid Epidermal inclusion cyst Essential (primary) hypertension Glaucoma Hemoglobin A1c above reference range Hyperlipidemia, mixed Influenza Kidney stones Low back pain lumbar Menopause present Migraine Obesity Obesity (BMI 30-39.9) Obstructive sleep apnea Ocular rosacea Other rhinitis Pap smear for cervical cancer screening 03/28/2021 neg Sebaceous cyst Skin ulcer of perineum, limited to breakdown of skin (HCC) Temporomandibular joint disorder Vitamin D deficiency Vulvar cellulitis [3] Family History Problem Relation Name Age of Onset Diverticulitis Mother Glaucoma Mother Heart disease Father CABG 60y Diverticulitis Maternal Grandmother Dementia Maternal Grandmother Urinary tract infection Maternal Grandmother Other (AAA) Maternal Grandfather Parkinsonism Maternal Grandfather Heart attack Paternal Grandmother Heart attack Paternal Grandfather Obesity Child Sleep apnea Child Breast cancer Mother's Sister Other (Brain Tumor) Cousin [4] Past Surgical History: Procedure Laterality Date COLONOSCOPY 04/2014 tubular adenoma, mod sigmoid diverticulosis/[place] COLONOSCOPY 2000 diverticulosis mininal /[place] COLONOSCOPY 08/15/2018 severe diverticulosis/[place] CORONARY BYPASS GRAFT STUDY 03/2022 DILATION AND CURETTAGE OF UTERUS 06/25/2022 PAP SMEAR 11/01/2015 PFT COMPLETE 07/26/2014 ( Normal) MI EXC BARTHOLINS GLAND/CYST 2009 UMBILICAL HERNIA REPAIR 2009 Umbilical herniorrhaphy ( mesh) documented in this encounter [facility] 11-10-2024 History of Presen t illness Narrative Subjective Patient ID: Renate Field is a 64 y.o. female. Chief Complaint Chief Complaint Patient presents with Back Pain HPI Back Pain This is a new (Patient was seen and evaluated in the ER due to back pain on the 26 of October. She states that on that daily pain was so bad that she could not walk and could not bend. Was told she has 5 bulging this) problem. The current episode started 1 to 4 weeks ago (2 weeks ago. could not walk had severe pain.). The problem occurs intermittently. The problem has been gradually improving since onset. The pain is present in the lumbar spine and gluteal. The quality of the pain is described as aching. The pain radiates to the right knee and right thigh. The pain is at a severity of 2/10. The pain is mild. The pain is Worse during the day (worse in the morning especially when she is climbing the scale). The symptoms are aggravated by standing, twisting and position. Stiffness is present In the morning. Pertinent negatives include no abdominal pain, bladder incontinence, bowel incontinence, chest pain, dysuria, fever, leg pain, numbness, tingling or weight loss. Risk factors include obesity. She has tried analgesics (She was given hydrocodone and Zanaflex 4 a few days. She has not taking any pain medication in the last 3 to 4 days. Will start physical therapy on Wednesday. CT lumbar spine showed lumbar stenosis x-ray of the hip was negative.) for the symptoms. The treatment provided significant relief. CT lumbar spine done 10/26/2024 Exam/Technique: Contiguous axial images are obtained of the CT lumbar spine without intravenous contrast. Coronal and sagittal reconstructions were performed and reviewed. Automatic dose exposure reduction technique utilized. Comparison: Findings: No paraspinous mass or fluid collection. Nonobstructing stone in the lower pole of the right kidney. Vascular calcification of the aorta. Osteopenia. Scoliosis. Multilevel degenerative changes disc osteophytes and facet disease. No loss of vertebral body height. Scattered Schmorl's nodes as seen at L1 superior endplate. Disc spaces above the thoracolumbar junction are grossly noted to demonstrate marked degenerative disc disease without significant central canal stenosis or neural canal stenosis. L1-L2 marginal disc bulging without any significant stenosis. L2-3 broad-based disc bulge flattening the thecal sac facet disease resulting in central canal stenosis and mild neural canal and lateral recess stenosis. This is noted more marked on the right than the left. L3-4 significant broad-based disc bulge and posterior element facet hypertrophy. Moderate central canal stenosis and moderate neural canal stenosis right more than left. L4-5: Broad-based disc bulge. Facet disease. No significant central canal stenosis. Bilateral moderate neural canal stenosis. L5-S1: disc bulging and disc osteophyte complexes. Neural canal stenosis moderate degree. IMPRESSION: Significant disc osteophyte complexes and asymmetrical in the lumbar spine with central canal stenosis at L3-4 most advanced and moderate neural canal stenosis noted at L3-4 and L4-5 as well as further areas of right-sided neural canal stenosis at L2-3. XR HIP RT 2-3 VIEWS W OR WO PELVIS done 10/26/2024 HISTORY: Right hip pain radiating down right lower extremity. COMPARISON: CT abdomen and pelvis 11/03/2023 FINDINGS: No acute fracture or malalignment. Joint spaces appear grossly well-preserved. Pelvic ring appears intact. No obvious soft tissue abnormality. Degenerative changes at L5-S1. Mild heterotopic bone formation near the greater trochanter IMPRESSION: * No acute osseous abnormality. Approved by Resident: Luis Dias MD on 10/26/2024 4:05 PM Active Problems Patient Active Problem List Diagnosis Obesity (BMI 35.0-39.9 without comorbidity) Sleep apnea, obstructive Encounter for diagnostic colonoscopy due to change in bowel habits History of adenomatous polyp of colon NSTEMI (non-ST elevated myocardial infarction) ([facility]) CAD (coronary artery disease) Shortness of breath Diverticulitis Dysuria Hair loss Prediabetes Bulging of lumbar intervertebral disc Past Medical History Past Medical History: Diagnosis Date Allergic rhinitis Arthritis Back pain Diverticulitis of colon Glaucoma Hemorrhoids Hyperglycemia Hyperlipidemia Hypertension Lupus Myocardial infarction ([facility]) Obesity Obstructive sleep apnea Recurrent UTI Varicella Visual impairment Past Surgical History Past Surgical History: Procedure Laterality Date BARTHOLIN GLAND CYST EXCISION COLONOSCOPY 2014 COLONOSCOPY N/A 08/15/2018 Performed by Fabien Medellin MD at [facility] CORONARY ARTERY BYPASS GRAFT x3 with CUEVAS and SVG x2 / Left Leg EVH / VINNIE N/A 03/26/2022 Performed by Cayetano Isaac MD at [facility] C[facility] + LV GRAM/PRESS N/A 03/26/2022 Performed by Veronica Ramsey MD at [facility] CATH LABS DILATION AND CURETTAGE OF UTERUS 07/02/2022 [facility] HERNIA REPAIR ORIF Left arm Family History Family History Problem Relation Age of Onset Diverticulitis Mother Glaucoma Mother Hypertension Mother Heart disease Father Arthritis Father Aortic aneurysm Maternal Grandfather Heart disease Maternal Grandfather from Aortic Aneurysm Heart attack Paternal Grandmother Heart disease Paternal Grandmother from sudden heart attack Heart attack Paternal Grandfather Breast cancer Maternal Aunt 34 Sleep disorder Neg Hx Social History Social History Socioeconomic History Marital status: Single Spouse name: Not on file Number of children: Not on file Years of education: Not on file Highest education level: Not on file Occupational History Not on file Tobacco Use Smoking status: Never Smokeless tobacco: Never Vaping Use Vaping status: Never Used Substance and Sexual Activity Alcohol use: Yes Alcohol/week: 2.0 standard drinks of alcohol Types: 1 Glasses of wine, 1 Shots of liquor per week Comment: once or twice a month Drug use: Never Sexual activity: Yes Partners: Male control/protection: Post-menopausal Other Topics Concern Caffeine Use Yes Social History Narrative Not on file Social Drivers of Health Financial Resource Strain: Medium Risk (10/30/2024) Overall Financial Resource Strain (CARDIA) Difficulty of Paying Living Expenses: Somewhat hard Food Insecurity: No Food Insecurity (11/10/2024) Hunger Screening Food Insecurity - Worry: Never True Food Insecurity - Inability: Never True Transportation Needs: No Transportation Needs (10/30/2024) PRAPARE - Transportation Lack of Transportation (Medical): No Lack of Transportation (Non-Medical): No Physical Activity: Not on file Stress: Not on file Social Connections: Not on file Interpersonal Safety: Not on file Housing Instability: Low Risk (10/30/2024) Housing Instability Housing Instability: No Allergies Allergies Allergen Reactions Penicillins Rosuvastatin Sulfate Salt Sulfa (Sulfonamide Antibiotics) Rash Current Medications Current Outpatient Medications Medication Sig Dispense Refill acetaminophen (TYLENOL EXTRA STRENGTH) 500 mg tablet Take 2 tablets (1,000 mg total) by mouth every 6 (six) hours as needed for pain. 60 tablet 0 aspirin 81 mg Take 1 tablet (81 mg total) by mouth nightly. atorvastatin (LIPITOR) 20 mg tablet Take 1 tablet (20 mg total) by mouth in the morning. 30 tablet 11 CALCIUM ORAL Take by mouth in the morning. cholecalciferol, vitD3,/vit K2 (VITAMIN D3-VITAMIN K2 ORAL) Take by mouth. ezetimibe (ZETIA) 10 mg tablet Take 1 tablet (10 mg total) by mouth in the morning. 90 tablet 2 isosorbide mononitrate (IMDUR) 30 mg 24 hr tablet TAKE 1 TABLET BY MOUTH EVERY DAY 90 tablet 3 lisinopriL (PRINIVIL,ZESTRIL) 5 mg tablet TAKE 1 TABLET (5 MG TOTAL) BY MOUTH IN THE MORNING 90 tablet 2 metoprolol tartrate (LOPRESSOR) 50 mg tablet TAKE 1 TABLET BY MOUTH EVERY 12 HOURS. 180 tablet 3 gzrxadbl-oxy-US-lycopen-lutein (CENTRUM SILVER) 0.4 mg-300 mcg- 250 mcg tablet Take 1 tablet by mouth in the morning. naloxone (NARCAN) 4 mg/actuation spray,non-aerosol nasal spray Administer 1 spray (4 mg total) into alternating nostrils as needed for opioid reversal. 1 each 0 nitroglycerin (NITROSTAT) 0.4 MG SL tablet 1 under the tongue as needed for angina, may repeat q5mins for up three doses 30 tablet 3 timolol (TIMOPTIC) 0.5 % ophthalmic solution Administer 1 drop to both eyes in the morning. valACYclovir (VALTREX) 500 mg tablet Take 1 tablet (500 mg total) by mouth in the morning. No current facility-administered medications for this visit. Review of Systems Review of Systems Constitutional: Positive for activity change. Negative for chills, fever and weight loss. HENT: Negative for ear pain and sore throat. Eyes: Negative for pain and visual disturbance. Respiratory: Negative for cough and shortness of breath. Cardiovascular: Negative for chest pain and palpitations. Gastrointestinal: Negative for abdominal pain, bowel incontinence, constipation, diarrhea, nausea and vomiting. Genitourinary: Negative for bladder incontinence, dysuria and hematuria. No incontinence of urine Musculoskeletal: Positive for arthralgias and back pain. Low back pain radiating to the right leg. Skin: Negative for color change and rash. Neurological: Negative for tingling, seizures, syncope and numbness. All other systems reviewed and are negative. Objective Vitals BP 122/70 (BP Site: Left Arm, BP Postition: Sitting) Pulse 64 Temp 36.7 C (98 F) (Oral) Ht 152.4 cm (5') Wt 86.1 kg (189 lb 14.4 oz) LMP (LMP Unknown) SpO2 98% BMI 37.09 kg/m Physical Exam Physical Exam Vitals and nursing note reviewed. Constitutional: Appearance: Normal appearance. HENT: Head: Normocephalic. Right Ear: Hearing, tympanic membrane, ear canal and external ear normal. No decreased hearing noted. No laceration, drainage, swelling or tenderness. No middle ear effusion. There is no impacted cerumen. Tympanic membrane is not injected, scarred, perforated, erythematous, retracted or bulging. Tympanic membrane has normal mobility. Left Ear: Hearing, tympanic membrane, ear canal and external ear normal. No decreased hearing noted. No laceration, drainage, swelling or tenderness. No middle ear effusion. There is no impacted cerumen. Tympanic membrane is not injected, scarred, perforated, erythematous, retracted or bulging. Tympanic membrane has normal mobility. Nose: Nose normal. No nasal tenderness, mucosal edema, congestion or rhinorrhea. Right Turbinates: Not enlarged, swollen or pale. Left Turbinates: Not enlarged, swollen or pale. Right Sinus: No maxillary sinus tenderness or frontal sinus tenderness. Left Sinus: No maxillary sinus tenderness or frontal sinus tenderness. Mouth/Throat: Mouth: Mucous membranes are moist. Pharynx: No pharyngeal swelling, oropharyngeal exudate, posterior oropharyngeal erythema, uvula swelling or postnasal drip. Tonsils: No tonsillar exudate or tonsillar abscesses. Eyes: General: Lids are normal. Extraocular Movements: Right eye: Normal extraocular motion and no nystagmus. Left eye: Normal extraocular motion and no nystagmus. Conjunctiva/sclera: Conjunctivae normal. Right eye: Right conjunctiva is not injected. Left eye: Left conjunctiva is not injected. Neck: Thyroid: No thyroid mass, thyromegaly or thyroid tenderness. Cardiovascular: Rate and Rhythm: Normal rate and regular rhythm. Pulses: Dorsalis pedis pulses are 2+ on the right side and 2+ on the left side. Posterior tibial pulses are 2+ on the right side and 2+ on the left side. Heart sounds: Normal heart sounds, S1 normal and S2 normal. Pulmonary: Effort: Pulmonary effort is normal. Breath sounds: Normal breath sounds. No decreased breath sounds, wheezing, rhonchi or rales. Abdominal: General: Bowel sounds are normal. Palpations: Abdomen is soft. Tenderness: There is no abdominal tenderness. There is no right CVA tenderness or left CVA tenderness. Musculoskeletal: Cervical back: Normal range of motion. Right lower leg: No edema. Left lower leg: No edema. Skin: General: Skin is warm. Neurological: Mental Status: She is alert and oriented to person, place, and time. Psychiatric: Attention and Perception: Attention and perception normal. Mood and Affect: Mood and affect normal. Speech: Speech normal. Behavior: Behavior normal. Behavior is cooperative. Thought Content: Thought content normal. Cognition and Memory: Cognition and memory normal. Judgment: Judgment normal. Assessment/Plan 1. Acute bilateral low back pain with right-sided sciatica No orders of the defined types were placed in this encounter. Patient was seen today for back pain, her pain has improved. Plan Advised her to begin physical therapy She can take Tylenol when the pain is mild She can take ibuprofen when the pain is moderate or severe Advised her to call the office if severe pain can not be controlled I give her an exercise on YouTube to do for back stretches Most recent ER records reviewed during this office visit. Side effects of prescribed medications reviewed with the patient. All the pertinent questions were answered. Patient noted to have elevated BMI and the following intervention(s) were applied: encouragement to exercise and prescribed diet education. Return in about 3 months (around 02/09/2025) for obesity, back pain. This note is created with the assistance of a speech recognition program. While intending to generate a document that actually reflects the content of the visit, the document can still have some errors including those of syntax and sound a like substitutions which may escape proof reading. It such instances, actual meaning can be extrapolated by contextual diversion. LINN Ron 11/10/24 0944 documented in this encounter [facility] 10-30-2024 History of Presen t illness Narrative CONTROL SUBSTANCE REFILL: CONTROL SUBSTANCE MEDICATION E-PRESCRIPTION: Medication and Dose: Lincoln 5-325mg q6h PRN Max tabs per day: 4 Number of tabs prescribed: 28 Diagnoses and all orders for this visit: Bulging of lumbar intervertebral disc - HYDROcodone-acetaminophen (NORCO) 5-325 mg per tablet; Take 1 tablet by mouth every 6 (six) hours as needed for pain for up to 7 days. Max Daily Amount: 4 tablets - naloxone (NARCAN) 4 mg/actuation spray,non-aerosol nasal spray; Administer 1 spray (4 mg total) into alternating nostrils as needed for opioid reversal. Acute bilateral low back pain with sciatica, sciatica laterality unspecified - HYDROcodone-acetaminophen (NORCO) 5-325 mg per tablet; Take 1 tablet by mouth every 6 (six) hours as needed for pain for up to 7 days. Max Daily Amount: 4 tablets - naloxone (NARCAN) 4 mg/actuation spray,non-aerosol nasal spray; Administer 1 spray (4 mg total) into alternating nostrils as needed for opioid reversal. -OARRS Reviewed -No inappropriate use or UDS noted HI TOLBERT MD 10/30/24 [facility] History of Presen t illness Narrative Images from the original note were not included. [facility] [address] [place] [address] [place] [address] Patient: Renate Field Date of : 1960 Encounter Date: 10/30/2024 Subjective: Chief Complaint Chief Complaint Patient presents with Er Follow-up [facility] 10/26 History of Present Illness Renate Field is a 64 y.o. female, established patient, that presents to the office for ER follow up for acute back pain. History provided by patient. Back Pain This is a new problem. Radiates to: Pain radiates into right groin and down anterior thigh into knee. Denies any pain radiating into right lower leg or foot. Worse during: Improves with sitting to a 3/10. The symptoms are aggravated by standing (Standing pain increases to 10/10.). Associated symptoms include leg pain and numbness (Located on lateral right side of leg feels abnormal). Pertinent negatives include no bladder incontinence, bowel incontinence or perianal numbness. (She states that after taking Lincoln 5/325 mg 1 tablet that 30 minutes later she has a 30-60 minute window in which pain with walking markedly decreased but then pain ) Review of Systems Review of Systems Gastrointestinal: Negative for bowel incontinence. Genitourinary: Negative for bladder incontinence. Musculoskeletal: Positive for back pain. Neurological: Positive for numbness (Located on lateral right side of leg feels abnormal). Vital Signs BP 132/80 (BP Site: Left Arm, BP Postition: Sitting) Pulse 54 Temp 36.7 C (98 F) (Oral) Wt 87.5 kg (193 lb) LMP (LMP Unknown) SpO2 98% BMI 37.69 kg/m Physical Exam Physical Exam Vitals reviewed. Constitutional: General: She is in acute distress. Appearance: She is overweight. She is not ill-appearing or toxic-appearing. Comments: Ambulating with assistance of walker with wheels. Patient with partial weight-bearing on right foot Cardiovascular: Rate and Rhythm: Normal rate and regular rhythm. Pulses: Posterior tibial pulses are 2+ on the right side and 2+ on the left side. Heart sounds: No murmur heard. Pulmonary: Effort: Pulmonary effort is normal. No accessory muscle usage or respiratory distress. Breath sounds: Normal breath sounds. No decreased breath sounds, wheezing, rhonchi or rales. Musculoskeletal: Lumbar back: Deformity and spasms (Parapsinal muscle tension on left from T12-L4) present. No tenderness. Negative right straight leg raise test and negative left straight leg raise test. Scoliosis (Thoracolumbar scoliosis convex right) present. Right lower leg: No edema. Left lower leg: No edema. Neurological: Deep Tendon Reflexes: Reflex Scores: Patellar reflexes are 2+ on the right side and 2+ on the left side. Achilles reflexes are 2+ on the right side and 2+ on the left side. Comments: Lower extremity strength ( seated): Hip abduction: 5/5 bilaterally, hip ad duction: 5/5 bilaterally, knee extension 5/5 bilaterally, knee flexion 5/5 bilaterally, ankle dorsiflexion 5/5 bilaterally, ankle plantar flexion 5/5 bilaterally. Sensation to light touch bilateral lower extremities preserved from the L2 through L5 dermatomal pattern Past Medical, Family, Surgery and Social History Past Medical History: Diagnosis Date Allergic rhinitis Arthritis Back pain Diverticulitis of colon Glaucoma Hemorrhoids Hyperglycemia Hyperlipidemia Hypertension Lupus Myocardial infarction ([facility]-HCC) Obesity Obstructive sleep apnea Recurrent UTI Varicella Visual impairment Past Surgical History: Procedure Laterality Date BARTHOLIN GLAND CYST EXCISION COLONOSCOPY 2014 COLONOSCOPY N/A 08/15/2018 Performed by Fabien Medellin MD at [facility] CORONARY ARTERY BYPASS GRAFT x3 with CUEVAS and SVG x2 / Left Leg EVH / VINNIE N/A 03/26/2022 Performed by Cayetano Isaac MD at [facility] + LV GRAM/PRESS N/A 03/26/2022 Performed by Veronica Ramsey MD at [facility] CATH LABS DILATION AND CURETTAGE OF UTERUS 07/02/2022 [facility] HERNIA REPAIR ORIF Left arm Family History Problem Relation Age of Onset Diverticulitis Mother Glaucoma Mother Hypertension Mother Heart disease Father Arthritis Father Aortic aneurysm Maternal Grandfather Heart disease Maternal Grandfather from Aortic Aneurysm Heart attack Paternal Grandmother Heart disease Paternal Grandmother from sudden heart attack Heart attack Paternal Grandfather Breast cancer Maternal Aunt 34 Sleep disorder Neg Hx Social History Socioeconomic History Marital status: Single Spouse name: Not on file Number of children: Not on file Years of education: Not on file Highest education level: Not on file Occupational History Not on file Tobacco Use Smoking status: Never Smokeless tobacco: Never Vaping Use Vaping status: Never Used Substance and Sexual Activity Alcohol use: Yes Alcohol/week: 2.0 standard drinks of alcohol Types: 1 Glasses of wine, 1 Shots of liquor per week Comment: once or twice a month Drug use: Never Sexual activity: Yes Partners: Male control/protection: Post-menopausal Other Topics Concern Caffeine Use Yes Social History Narrative Not on file Social Drivers of Health Financial Resource Strain: Medium Risk (10/30/2024) Overall Financial Resource Strain (CARDIA) Difficulty of Paying Living Expenses: Somewhat hard Food Insecurity: No Food Insecurity (10/30/2024) Hunger Screening Food Insecurity - Worry: Never True Food Insecurity - Inability: Never True Transportation Needs: No Transportation Needs (10/30/2024) PRAPARE - Transportation Lack of Transportation (Medical): No Lack of Transportation (Non-Medical): No Physical Activity: Not on file Stress: Not on file Social Connections: Not on file Interpersonal Safety: Not on file Housing Instability: Low Risk (10/30/2024) Housing Instability Housing Instability: No Allergies and Current Medications Allergies Allergen Reactions Penicillins Rosuvastatin Sulfate Salt Sulfa (Sulfonamide Antibiotics) Rash Current Outpatient Medications on File Prior to Visit Medication Sig acetaminophen (TYLENOL EXTRA STRENGTH) 500 mg tablet Take 2 tablets (1,000 mg total) by mouth every 6 (six) hours as needed for pain. aspirin 81 mg Take 1 tablet (81 mg total) by mouth nightly. atorvastatin (LIPITOR) 20 mg tablet Take 1 tablet (20 mg total) by mouth in the morning. CALCIUM ORAL Take by mouth in the morning. cholecalciferol, vitD3,/vit K2 (VITAMIN D3-VITAMIN K2 ORAL) Take by mouth. ezetimibe (ZETIA) 10 mg tablet Take 1 tablet (10 mg total) by mouth in the morning. isosorbide mononitrate (IMDUR) 30 mg 24 hr tablet TAKE 1 TABLET BY MOUTH EVERY DAY lisinopriL (PRINIVIL,ZESTRIL) 5 mg tablet TAKE 1 TABLET (5 MG TOTAL) BY MOUTH IN THE MORNING metoprolol tartrate (LOPRESSOR) 50 mg tablet TAKE 1 TABLET BY MOUTH EVERY 12 HOURS. nowpxcvv-spc-II-lycopen-lutein (CENTRUM SILVER) 0.4 mg-300 mcg- 250 mcg tablet Take 1 tablet by mouth in the morning. nitroglycerin (NITROSTAT) 0.4 MG SL tablet 1 under the tongue as needed for angina, may repeat q5mins for up three doses orphenadrine (NORFLEX) 100 mg 12 hr tablet Take 1 tablet (100 mg total) by mouth 2 (two) times a day as needed for pain or muscle spasms. timolol (TIMOPTIC) 0.5 % ophthalmic solution Administer 1 drop to both eyes in the morning. valACYclovir (VALTREX) 500 mg tablet Take 1 tablet (500 mg total) by mouth in the morning. [] HYDROcodone-acetaminophen (NORCO) 5-325 mg per tablet Take 1 tablet by mouth every 6 (six) hours as needed for pain for up to 3 days. Max Daily Amount: 4 tablets No current facility-administered medications on file prior to visit. Labs and Imaging Lab Results Component Value Date WBC 8.0 11/04/2023 HGB 14.5 11/04/2023 HCT 43.2 11/04/2023 PLT 227 11/04/2023 CHOL 172 11/04/2023 TRIG 174 (H) 07/14/2024 HDL 52 11/04/2023 ALT 35 (H) 11/04/2023 AST 24 11/04/2023 K 4.5 11/04/2023 CL 106 11/04/2023 CREATININE 0.86 11/04/2023 BUN 16 11/04/2023 CO2 27 11/04/2023 TSH 1.85 11/21/2015 INR 1.2 (H) 03/27/2022 HGBA1C 5.8 11/21/2015 X-ray hip right 2-3 views with or without pelvis XR HIP RT 2-3 VIEWS W OR WO PELVIS HISTORY: Right hip pain radiating down right lower extremity. COMPARISON: CT abdomen and pelvis 11/03/2023 FINDINGS: No acute fracture or malalignment. Joint spaces appear grossly well-preserved. Pelvic ring appears intact. No obvious soft tissue abnormality. Degenerative changes at L5-S1. Mild heterotopic bone formation near the greater trochanter IMPRESSION: * No acute osseous abnormality. Approved by Resident: Luis Dias MD on 10/26/2024 4:05 PM I, Chet Mondragon MD have personally reviewed the image(s) and agree with and/or edited the report Finalized by Chet Mondragon MD on 10/26/2024 4:[address] lumbar spine without contrast History: Pain and injury. Exam/Technique: Contiguous axial images are obtained of the CT lumbar spine without intravenous contrast. Coronal and sagittal reconstructions were performed and reviewed. Automatic dose exposure reduction technique utilized. Comparison: Findings: No paraspinous mass or fluid collection. Nonobstructing stone in the lower pole of the right kidney. Vascular calcification of the aorta. Osteopenia. Scoliosis. Multilevel degenerative changes disc osteophytes and facet disease. No loss of vertebral body height. Scattered Schmorl's nodes as seen at L1 superior endplate. Disc spaces above the thoracolumbar junction are grossly noted to demonstrate marked degenerative disc disease without significant central canal stenosis or neural canal stenosis. L1-L2 marginal disc bulging without any significant stenosis. L2-3 broad-based disc bulge flattening the thecal sac facet disease resulting in central canal stenosis and mild neural canal and lateral recess stenosis. This is noted more marked on the right than the left. L3-4 significant broad-based disc bulge and posterior element facet hypertrophy. Moderate central canal stenosis and moderate neural canal stenosis right more than left. L4-5: Broad-based disc bulge. Facet disease. No significant central canal stenosis. Bilateral moderate neural canal stenosis. L5-S1: disc bulging and disc osteophyte complexes. Neural canal stenosis moderate degree. IMPRESSION: Significant disc osteophyte complexes and asymmetrical in the lumbar spine with central canal stenosis at L3-4 most advanced and moderate neural canal stenosis noted at L3-4 and L4-5 as well as further areas of right-sided neural canal stenosis at L2-3. All CT scans at this facility use dose modulation, iterative reconstruction, and/or weight based dosing when appropriate to reduce radiation dose to as low as reasonably achievable. Finalized by Bryn Hernández MD on 10/26/2024 12:29 PM Assessment/Plan: 1. Acute bilateral low back pain with right-sided sciatica - predniSONE (DELTASONE) 20 mg tablet; Take 1 tablet (20 mg total) by mouth daily for 4 days, THEN 0.5 tablets (10 mg total) daily for 4 days. Dispense: 6 tablet; Refill: 0 - [facility] - [place], [place]; Future Discussed with patient the natural progression of acute low back pain. Patient has had improvement in pain since onset. She states that she has been able to reduce the amount of [place] 5325 mg tablets that she has needed to 1 every 6 to 7 hours. Advised patient to continue with Norflex 100 mg twice daily as needed as well as to use heat to help with muscle and soft tissue spasming. Prescribed prednisone 20 mg 1 tablet daily for 4 days then 10 mg daily for 4 days to help reduce acute inflammation in the soft tissue just causing her symptoms. Patient does not have any signs of cauda equina syndrome. Referral placed to physical therapy to start formal therapy program to help strengthen muscles and soft tissue around spine to help with discomfort improve in future pain. The OARRS/MAPPS database was reviewed today and found to be appropriate. No indication of medication diversion, or non compliance. Follow-up: one-week acute back pain follow-up - Cameron Myers DO 10/30/24 3:12 PM documented in this encounter [facility] 10-04-2024 Miscellaneous Notes Last OV 07/20/24 Last lipids 07/14/24.slm documented in this encounter [facility] 10-04-2024 Telephone encounter Note Last OV 07/20/24 Last lipids 07/14/24.slm [facility] 10-04-2024 Miscellaneous Notes Ov-07/20/24 documented in this encounter [facility] 10-04-2024 Telephone encounter Note Ov-07/20/24 [facility] 09-01-2024 Evaluation + Plan note Associated Problem(s): CAD (coronary artery disease) Coronary artery disease is stable and patient currently asymptomatic. Continue with medications for CAD. Follow with cardiology. Start Ozempic to help with CV risk reduction . [facility] 09-01-2024 Miscellaneous Notes Associated Problem(s): CAD (coronary artery disease) Coronary artery disease is stable and patient currently asymptomatic. Continue with medications for CAD. Follow with cardiology. Start Ozempic to help with CV risk reduction . Associated Problem(s): Obesity (BMI 35.0-39.9 without comorbidity) Obesity is stable. Due to hx of CAD and increased risk for another cardiac event start on Ozempic 0.25 mg injected SQ weekly for 4 weeks then plan to increase to 0.5 mg weekly. Continue with lifestyle and diet changes to prevent cardiac event documented in this encounter [facility] 09-01-2024 Evaluation + Plan note Associated Problem(s): Obesity (BMI 35.0-39.9 without comorbidity) Obesity is stable. Due to hx of CAD and increased risk for another cardiac event start on Ozempic 0.25 mg injected SQ weekly for 4 weeks then plan to increase to 0.5 mg weekly. Continue with lifestyle and diet changes to prevent cardiac event [facility] 08-30-2024 History of Presen t illness Narrative Images from the original note were not included. [facility] [address] [place] [address] [place] [address] Patient: Renate Field Date of : 1960 Encounter Date: 08/30/2024 Subjective: Chief Complaint Chief Complaint Patient presents with wellness History of Present Illness Renate Field is a 64 y.o. female, established patient, that presents to the office for wellness visit. History provided by patient. 64-year-old female that presented to clinic today for a wellness visit. Patient concerns: Discomfort in abdomen which she describes as feeling being kicked from the inside as if Obesity as patient is interested in weight loss management Medical history includes coronary artery disease status post non-STEMI with urgent three-vessel coronary artery bypass graft (2022), hypertension, hyperlipidemia, obstructive sleep apnea, obesity with BMI greater than 30, prediabetes with last hemoglobin A1c on August 04, 2024 at 6.3% Screening studies: Last mammogram December 2023 Last DEXA scan November 2022 Review of Systems Review of Systems Gastrointestinal: Positive for abdominal pain (has been present for the past month. Describes sensation of pressure from inside. Occurs daily but not associated with eating as aware of sensation at 3:30 this morning. Can last up to 1 hours. No improvement with changing position). Vital Signs BP 132/78 (BP Site: Left Arm, BP Postition: Sitting) Pulse 54 Temp 36.6 C (97.9 F) (Oral) Wt 85 kg (187 lb 6.4 oz) LMP (LMP Unknown) SpO2 97% BMI 36.60 kg/m Physical Exam Physical Exam Vitals reviewed. Constitutional: General: She is not in acute distress. Appearance: Normal appearance. She is not ill-appearing or toxic-appearing. Comments: overweight HENT: Head: Normocephalic. Right Ear: Tympanic membrane and ear canal normal. Left Ear: Tympanic membrane and ear canal normal. Mouth/Throat: Mouth: Mucous membranes are moist. Pharynx: No oropharyngeal exudate or posterior oropharyngeal erythema. Eyes: Extraocular Movements: Extraocular movements intact. Conjunctiva/sclera: Conjunctivae normal. Pupils: Pupils are equal, round, and reactive to light. Neck: Vascular: No carotid bruit. Cardiovascular: Rate and Rhythm: Normal rate and regular rhythm. Heart sounds: Normal heart sounds. No murmur heard. Pulmonary: Effort: Pulmonary effort is normal. No respiratory distress. Breath sounds: Normal breath sounds. No wheezing, rhonchi or rales. Abdominal: General: Bowel sounds are normal. Palpations: Abdomen is soft. Musculoskeletal: Cervical back: Neck supple. Right lower leg: No edema. Left lower leg: No edema. Lymphadenopathy: Cervical: No cervical adenopathy. Skin: Capillary Refill: Capillary refill takes less than 2 seconds. Neurological: General: No focal deficit present. Mental Status: She is alert. Cranial Nerves: No cranial nerve deficit. Deep Tendon Reflexes: Reflexes normal. Psychiatric: Mood and Affect: Mood normal. Behavior: Behavior normal. Thought Content: Thought content normal. Past Medical, Family, Surgery and Social History Past Medical History: Diagnosis Date Allergic rhinitis Arthritis Back pain Diverticulitis of colon Glaucoma Hemorrhoids Hyperglycemia Hyperlipidemia Hypertension Lupus Myocardial infarction (CMS-HCC) Obesity Obstructive sleep apnea Recurrent UTI Varicella Visual impairment Past Surgical History: Procedure Laterality Date BARTHOLIN GLAND CYST EXCISION COLONOSCOPY 2014 COLONOSCOPY N/A 08/15/2018 Performed by Fabien Medellni MD at [facility] CORONARY ARTERY BYPASS GRAFT x3 with CUEVAS and SVG x2 / Left Leg EVH / VINNIE N/A 03/26/2022 Performed by Cayetano Isaac MD at [facility] CORS + LV GRAM/PRESS N/A 03/26/2022 Performed by Veronica Ramsey MD at [facility] C[facility]IAC CATH LABS DILATION AND CURETTAGE OF UTERUS 07/02/2022 [facility] Left arm Family History Problem Relation Age of Onset Diverticulitis Mother Glaucoma Mother Hypertension Mother Heart disease Father Arthritis Father Aortic aneurysm Maternal Grandfather Heart disease Maternal Grandfather from Aortic Aneurysm Heart attack Paternal Grandmother Heart disease Paternal Grandmother from sudden heart attack Heart attack Paternal Grandfather Breast cancer Maternal Aunt 34 Sleep disorder Neg Hx Social History Socioeconomic History Marital status: Single Spouse name: Not on file Number of children: Not on file Years of education: Not on file Highest education level: Not on file Occupational History Not on file Tobacco Use Smoking status: Never Smokeless tobacco: Never Vaping Use Vaping status: Never Used Substance and Sexual Activity Alcohol use: Yes Alcohol/week: 2.0 standard drinks of alcohol Types: 1 Glasses of wine, 1 Shots of liquor per week Comment: once or twice a month Drug use: No Sexual activity: Yes Partners: Male control/protection: Post-menopausal Other Topics Concern Caffeine Use Yes Social History Narrative Not on file Social Drivers of Health Financial Resource Strain: Medium Risk (11/12/2023) Overall Financial Resource Strain (CARDIA) Difficulty of Paying Living Expenses: Somewhat hard Food Insecurity: No Food Insecurity (08/30/2024) Hunger Screening Food Insecurity - Worry: Never True Food Insecurity - Inability: Never True Transportation Needs: No Transportation Needs (11/12/2023) PRAPARE - Transportation Lack of Transportation (Medical): No Lack of Transportation (Non-Medical): No Physical Activity: Not on file Stress: Not on file Social Connections: Not on file Interpersonal Safety: Not on file Housing Instability: Low Risk (11/12/2023) Housing Instability Housing Instability: No Allergies and Current Medications Allergies Allergen Reactions Penicillins Rosuvastatin Sulfate Salt Sulfa (Sulfonamide Antibiotics) Rash Current Outpatient Medications on File Prior to Visit Medication Sig acetaminophen (TYLENOL EXTRA STRENGTH) 500 mg tablet Take 2 tablets (1,000 mg total) by mouth every 6 (six) hours as needed for pain. aspirin 81 mg Take 1 tablet (81 mg total) by mouth nightly. atorvastatin (LIPITOR) 20 mg tablet Take 1 tablet (20 mg total) by mouth in the morning. CALCIUM ORAL Take by mouth in the morning. cholecalciferol, vitD3,/vit K2 (VITAMIN D3-VITAMIN K2 ORAL) Take by mouth. ezetimibe (ZETIA) 10 mg tablet Take 1 tablet (10 mg total) by mouth in the morning. isosorbide mononitrate (IMDUR) 30 mg 24 hr tablet TAKE 1 TABLET BY MOUTH EVERY DAY lisinopriL (PRINIVIL,ZESTRIL) 5 mg tablet TAKE 1 TABLET (5 MG TOTAL) BY MOUTH IN THE MORNING metoprolol tartrate (LOPRESSOR) 50 mg tablet TAKE 1 TABLET BY MOUTH EVERY 12 HOURS. vdcwgpml-smp-ZG-lycopen-lutein (CENTRUM SILVER) 0.4 mg-300 mcg- 250 mcg tablet Take 1 tablet by mouth in the morning. nitroglycerin (NITROSTAT) 0.4 MG SL tablet 1 under the tongue as needed for angina, may repeat q5mins for up three doses timolol (TIMOPTIC) 0.5 % ophthalmic solution Administer 1 drop to both eyes in the morning. valACYclovir (VALTREX) 500 mg tablet Take 1 tablet (500 mg total) by mouth in the morning. No current facility-administered medications on file prior to visit. Labs and Imaging Lab Results Component Value Date WBC 8.0 11/04/2023 HGB 14.5 11/04/2023 HCT 43.2 11/04/2023 PLT 227 11/04/2023 CHOL 172 11/04/2023 TRIG 174 (H) 07/14/2024 HDL 52 11/04/2023 ALT 35 (H) 11/04/2023 AST 24 11/04/2023 K 4.5 11/04/2023 CL 106 11/04/2023 CREATININE 0.86 11/04/2023 BUN 16 11/04/2023 CO2 27 11/04/2023 TSH 1.85 11/21/2015 INR 1.2 (H) 03/27/2022 HGBA1C 5.8 11/21/2015 Mammography screening bilateral with CAD RENATE FIELD 1960 [id number] EXAM: MAMM SCREENING BILATERAL W CAD, 01/10/2024 1:13 PM CLINICAL INDICATIONS: Screening, Visit for screening mammogram COMPARISON: 11/20/2022 and priors TECHNIQUE: Bilateral digital tomosynthesis MLO and CC views of the breasts were obtained, with creation of synthetic 2D views. Computer aided detection was utilized. FINDINGS: There are scattered areas of fibroglandular density. There are no suspicious masses, calcifications, or areas of architectural distortion. IMPRESSION: No mammographic evidence of malignancy. BI-RADS: BI-RADS 1 - Negative RECOMMENDATION: Routine screening mammogram in 1 year. RISK ASSESSMENT: TC Lifetime risk: 9.1%. The patient's reported personal and family medical history was used calculate their Tyrer-Cuzick lifetime risk of malignancy. Scores less than 20% are not considered high risk per ACR guidelines and patient should continue with the above recommendation. Finalized by Andre Hausre MD on 01/11/2024 10:38 AM 1 b MAMM 1 YR FDA Accredited Performing Facility: [facility] [place] - Mammography/DEXA Imaging [address] [facility] [id number] Assessment/Plan: 1. Healthcare maintenance 2. Obesity (BMI 35.0-39.9 without comorbidity) 3. Prediabetes 4. 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 Due to hx of CAD and increased risk for another cardiac event start on Ozempic 0.25 mg injected SQ weekly for 4 weeks then plan to increase to 0.5 mg weekly. Continue with lifestyle and diet changes to prevent cardiac event Follow up:1 month obesity follow up - Cameron Myers DO 09/01/24 10:00 PM documented in this encounter [facility] 08-14-2024 Miscellaneous Notes [facility] - PHARMACY MEDICATION MANAGEMENT [address] [facility] [id number] New referral received by [facility] Medication Management for weight management. Patient was contacted to schedule appointment at [facility] Medication Management [place] ([facility]). This was my first attempt to reach the patient and was able to schedule the patient on 09/01/2024 at [facility] . Patient will be asked to bring [facility] Additional Info: Medication List and Blood Glucose Meter. Referring provider: Cameron Myers DO documented in this encounter [facility] 08-14-2024 Telephone encounter Note [facility] - PHARMAC[facility] MEDICATION MANAGEMENT [address] [facility] [id number] New referral received by [facility] Medication Management for weight management. Patient was contacted to schedule appointment at [facility] Medication Management [place] ([facility]). This was my first attempt to reach the patient and was able to schedule the patient on 09/01/2024 at [facility] . Patient will be asked to bring [facility] Additional Info: Medication List and Blood Glucose Meter. Referring provider: Cameron Myers DO [facility] 08-04-2024 History of Presen t illness Narrative Images from the original note were not included. [facility] [address] [place], [place] [id number] Patient: Renate Field Date of : 1960 Encounter Date: 08/04/2024 Subjective: Chief Complaint Chief Complaint Patient presents with ozempic Back Pain History of Present Illness Renate Field is a 64 y.o. female, established patient, that presents to the office for obesity management interested in GLP 1 and chronic lower back pain which has been acutely aggravated. History provided by patient Obesity follow up -- 64 yr female. Currently on cardiac diet since her CABG in 2022. She does not eat pasta or potatoes. She does experience exertional fatigue since her CABG procedure. She states that gained weight after of second child. Her weight of the past 2 years has been relatively stable with weight fluctuating between 10 lbs. BMI at 36.5. Patient with prediabetes and currently treated with metformin XL 500 mg daily. Current HbA1c 6.3%. Patient with CAD s/p 3 vessel CABG in 2022. She continues to experience exertional dysfunction Back Pain This is a chronic problem. The problem has been gradually worsening (Patient states that she has been caring for her grandchildren including a toddler which she picks up frequently. Lumbar imaging from 2014 showed Multilevel degenerative disc disease with associated hypertrophic changes, notably at the L3-L4, L5-S1 level) since onset. The pain is present in the lumbar spine. The pain does not radiate. The symptoms are aggravated by bending and standing. Pertinent negatives include no chest pain. Diabetes She presents for her follow-up diabetic visit. Diabetes type: Prediabetes. Her disease course has been stable (HbA1c today is 6.3%.). Pertinent negatives for diabetes include no chest pain. Diabetic complications include heart disease. Current diabetic treatments: Current meds: Metformin XR 500 mg 1 tablet daily. She is following a generally healthy, low fat/cholesterol and low salt diet. Her home blood glucose trend is fluctuating minimally (Patient states that fasting blood sugars have been between 114 to 142 mg/dL). An KATHIE inhibitor/angiotensin II receptor manuel is being taken (On lisinopril 5 mg daily). Review of Systems Review of Systems Cardiovascular: Negative for chest pain, palpitations and leg swelling. Endocrine: Patient has been experiencing hair loss on face. Musculoskeletal: Positive for back pain. Vital Signs BP 130/72 (BP Site: Left Arm, BP Postition: Sitting) Pulse 57 Temp 36.6 C (97.9 F) (Oral) Wt 84.8 kg (187 lb) LMP (LMP Unknown) SpO2 97% BMI 36.52 kg/m Physical Exam Physical Exam Vitals reviewed. Constitutional: General: She is not in acute distress. Appearance: She is obese. She is not ill-appearing or toxic-appearing. Comments: Truncal obesity including hips and proximal lower extremities Cardiovascular: Rate and Rhythm: Normal rate and regular rhythm. Heart sounds: No murmur heard. Pulmonary: Effort: Pulmonary effort is normal. No respiratory distress. Breath sounds: Normal breath sounds. No wheezing, rhonchi or rales. Abdominal: General: Bowel sounds are normal. There is no distension. Tenderness: There is no abdominal tenderness. Musculoskeletal: Right lower leg: No edema. Left lower leg: No edema. Skin: Capillary Refill: Capillary refill takes less than 2 seconds. Neurological: Mental Status: She is alert. Past Medical, Family, Surgery and Social History Past Medical History: Diagnosis Date Allergic rhinitis Arthritis Back pain Diverticulitis of colon Glaucoma Hemorrhoids Hyperglycemia Hyperlipidemia Hypertension Lupus Myocardial infarction (CMS-HCC) Obstructive sleep apnea Recurrent UTI Varicella Visual impairment Past Surgical History: Procedure Laterality Date BARTHOLIN GLAND CYST EXCISION COLONOSCOPY 2014 COLONOSCOPY N/A 08/15/2018 Performed by Fabien Medellin MD at [facility] CORONARY ARTERY BYPASS GRAFT x3 with CUEVAS and SVG x2 / Left Leg EVH / VINNIE N/A 03/26/2022 Performed by Cayetano Isaac MD at [facility] CORS + LV GRAM/PRESS N/A 03/26/2022 Performed by Veronica Ramsey MD at [facility] C[facility] CATH LABS DILATION AND CURETTAGE OF UTERUS 07/02/2022 [facility] Left arm Family History Problem Relation Age of Onset Diverticulitis Mother Glaucoma Mother Hypertension Mother Heart disease Father Arthritis Father Aortic aneurysm Maternal Grandfather Heart attack Paternal Grandmother Heart attack Paternal Grandfather Breast cancer Maternal Aunt 34 Sleep disorder Neg Hx Social History Socioeconomic History Marital status: Single Spouse name: Not on file Number of children: Not on file Years of education: Not on file Highest education level: Not on file Occupational History Not on file Tobacco Use Smoking status: Never Smokeless tobacco: Never Vaping Use Vaping status: Never Used Substance and Sexual Activity Alcohol use: Yes Alcohol/week: 2.0 standard drinks of alcohol Types: 1 Glasses of wine, 1 Shots of liquor per week Comment: once or twice a month Drug use: No Sexual activity: Yes Partners: Male control/protection: Post-menopausal Other Topics Concern Caffeine Use Yes Social History Narrative Not on file Social Drivers of Health Financial Resource Strain: Medium Risk (11/12/2023) Overall Financial Resource Strain (CARDIA) Difficulty of Paying Living Expenses: Somewhat hard Food Insecurity: No Food Insecurity (08/04/2024) Hunger Screening Food Insecurity - Worry: Never True Food Insecurity - Inability: Never True Transportation Needs: No Transportation Needs (11/12/2023) PRAPARE - Transportation Lack of Transportation (Medical): No Lack of Transportation (Non-Medical): No Physical Activity: Not on file Stress: Not on file Social Connections: Not on file Interpersonal Safety: Not on file Housing Instability: Low Risk (11/12/2023) Housing Instability Housing Instability: No Allergies and Current Medications Allergies Allergen Reactions Penicillins Rosuvastatin Sulfate Salt Sulfa (Sulfonamide Antibiotics) Rash Current Outpatient Medications on File Prior to Visit Medication Sig acetaminophen (TYLENOL EXTRA STRENGTH) 500 mg tablet Take 2 tablets (1,000 mg total) by mouth every 6 (six) hours as needed for pain. aspirin 81 mg Take 1 tablet (81 mg total) by mouth nightly. atorvastatin (LIPITOR) 20 mg tablet Take 1 tablet (20 mg total) by mouth in the morning. CALCIUM ORAL Take by mouth in the morning. cholecalciferol, vitD3,/vit K2 (VITAMIN D3-VITAMIN K2 ORAL) Take by mouth. ezetimibe (ZETIA) 10 mg tablet Take 1 tablet (10 mg total) by mouth in the morning. isosorbide mononitrate (IMDUR) 30 mg 24 hr tablet TAKE 1 TABLET BY MOUTH EVERY DAY lisinopriL (PRINIVIL,ZESTRIL) 5 mg tablet TAKE 1 TABLET (5 MG TOTAL) BY MOUTH IN THE MORNING metFORMIN XR (GLUCOPHAGE XR) 500 mg 24 hr tablet Take 1 tablet (500 mg total) by mouth daily with breakfast. metoprolol tartrate (LOPRESSOR) 50 mg tablet TAKE 1 TABLET BY MOUTH EVERY 12 HOURS. kaudepnj-akp-XC-lycopen-lutein (CENTRUM SILVER) 0.4 mg-300 mcg- 250 mcg tablet Take 1 tablet by mouth in the morning. nitroglycerin (NITROSTAT) 0.4 MG SL tablet 1 under the tongue as needed for angina, may repeat q5mins for up three doses timolol (TIMOPTIC) 0.5 % ophthalmic solution Administer 1 drop to both eyes in the morning. No current facility-administered medications on file prior to visit. Labs and Imaging Lab Results Component Value Date WBC 8.0 11/04/2023 HGB 14.5 11/04/2023 HCT 43.2 11/04/2023 PLT 227 11/04/2023 CHOL 172 11/04/2023 TRIG 174 (H) 07/14/2024 HDL 52 11/04/2023 ALT 35 (H) 11/04/2023 AST 24 11/04/2023 K 4.5 11/04/2023 CL 106 11/04/2023 CREATININE 0.86 11/04/2023 BUN 16 11/04/2023 CO2 27 11/04/2023 TSH 1.85 11/21/2015 INR 1.2 (H) 03/27/2022 HGBA1C 5.8 11/21/2015 Mammography screening bilateral with CAD RENATE FIELD 1960 [id number] EXAM: MAMM SCREENING BILATERAL W CAD, 01/10/2024 1:13 PM CLINICAL INDICATIONS: Screening, Visit for screening mammogram COMPARISON: 11/20/2022 and priors TECHNIQUE: Bilateral digital tomosynthesis MLO and CC views of the breasts were obtained, with creation of synthetic 2D views. Computer aided detection was utilized. FINDINGS: There are scattered areas of fibroglandular density. There are no suspicious masses, calcifications, or areas of architectural distortion. IMPRESSION: No mammographic evidence of malignancy. BI-RADS: BI-RADS 1 - Negative RECOMMENDATION: Routine screening mammogram in 1 year. RISK ASSESSMENT: TC Lifetime risk: 9.1%. The patient's reported personal and family medical history was used calculate their Tyrer-Cuzick lifetime risk of malignancy. Scores less than 20% are not considered high risk per ACR guidelines and patient should continue with the above recommendation. Finalized by Andre Hauser MD on 01/11/2024 10:38 AM 1 b MAMM 1 YR FDA Accredited Performing Facility: [facility] [place] - Mammography/DEXA Imaging [address] [facility] [id number] Assessment/Plan: 1. Obesity (BMI 35.0-39.9 without comorbidity) - POCT Hemoglobin A1c - semaglutide (OZEMPIC) 0.25 mg or 0.5 mg (2 mg/3 mL) pen injector; Inject 0.5 mg under the skin every 7 days. Dispense: 3 mL; Refill: 0 2. Hyperglycemia - POCT Hemoglobin A1c 3. Prediabetes - semaglutide (OZEMPIC) 0.25 mg or 0.5 mg (2 mg/3 mL) pen injector; Inject 0.5 mg under the skin every 7 days. Dispense: 3 mL; Refill: 0 Discussed with patient the benefits and risks and potential side effects of taking GLP 1 medication. Patient does have a history of prediabetes and is on metformin XR 500 mg daily. Hemoglobin A1c today is 6.3% despite being on metformin. Patient's BMI is 35. Patient does have a history of coronary artery disease status post three-vessel bypass. Given the benefits of GLP 1 with weight loss, blood sugar control, and cardiovascular disease, I recommend patient starting on semaglutide 0.5 mg weekly injection with goal to increase to 2 mg weekly over the next 3 months. Continue to monitor fasting blood sugars daily. Follow-up: 1 to 2 months wellness exam/obesity follow up - Cameorn Myers DO 08/04/24 1:18 PM documented in this encounter [facility] 07-20-2024 History of Presen t illness Narrative Renate Field Date of visit: 07/20/2024 Date of : 1960 Age: 64 y.o. Patient Active Problem List Diagnosis BMI 33.0-33.9,adult Sleep apnea, obstructive Encounter for diagnostic colonoscopy due to change in bowel habits History of adenomatous polyp of colon NSTEMI (non-ST elevated myocardial infarction) ([facility]) CAD (coronary artery disease) Shortness of breath Diverticulitis Dysuria Allergies Allergen Reactions Penicillins Rosuvastatin Sulfate Salt Sulfa (Sulfonamide Antibiotics) Rash Current Outpatient Medications Medication Sig Dispense Refill acetaminophen (TYLENOL EXTRA STRENGTH) 500 mg tablet Take 2 tablets (1,000 mg total) by mouth every 6 (six) hours as needed for pain. 60 tablet 0 aspirin 81 mg Take 1 tablet (81 mg total) by mouth nightly. atorvastatin (LIPITOR) 20 mg tablet Take 1 tablet (20 mg total) by mouth in the morning. 30 tablet 11 CALCIUM ORAL Take by mouth in the morning. cholecalciferol, vitD3,/vit K2 (VITAMIN D3-VITAMIN K2 ORAL) Take by mouth. ezetimibe (ZETIA) 10 mg tablet Take 1 tablet (10 mg total) by mouth in the morning. 90 tablet 3 isosorbide mononitrate (IMDUR) 30 mg 24 hr tablet TAKE 1 TABLET BY MOUTH EVERY DAY 90 tablet 3 lisinopriL (PRINIVIL,ZESTRIL) 5 mg tablet TAKE 1 TABLET (5 MG TOTAL) BY MOUTH IN THE MORNING 90 tablet 2 metFORMIN XR (GLUCOPHAGE XR) 500 mg 24 hr tablet Take 1 tablet (500 mg total) by mouth daily with breakfast. metoprolol tartrate (LOPRESSOR) 50 mg tablet TAKE 1 TABLET BY MOUTH EVERY 12 HOURS. 180 tablet 3 ddfzglnr-won-EF-lycopen-lutein (CENTRUM SILVER) 0.4 mg-300 mcg- 250 mcg tablet Take 1 tablet by mouth in the morning. nitroglycerin (NITROSTAT) 0.4 MG SL tablet 1 under the tongue as needed for angina, may repeat q5mins for up three doses 30 tablet 3 timolol (TIMOPTIC) 0.5 % ophthalmic solution Administer 1 drop to both eyes in the morning. valACYclovir (VALTREX) 1000 mg tablet Take 1 tablet (1,000 mg total) by mouth in the morning and 1 tablet (1,000 mg total) before bedtime. cholecalciferol, vitamin D3, 5,000 units tablet Take 1,000 Units by mouth in the morning. (Patient not taking: Reported on 07/20/2024) No current facility-administered medications for this visit. Chief Complaint Patient presents with Follow-up Coronary Artery Disease History of Present Illness In follow-up. This is the 1st time I meet her. She has multiple symptoms and tells me that she never felt good since her bypass surgery. Her main complaint is extreme fatigue with only 30 minute housework no chest pain or significant shortness of breath but she feels very limited. She also has musculoskeletal intermittent chest discomfort last seconds that she noticed since the surgery She did have 2 stress test for these symptoms, last 1 was 03/05/23 low risks Echo 05/2022 with preserved ejection fraction and no significant valvular disease Past Medical History: Diagnosis Date Allergic rhinitis Arthritis Back pain Diverticulitis of colon Glaucoma Hemorrhoids Hyperglycemia Hyperlipidemia Hypertension Lupus Myocardial infarction ([facility]) Obstructive sleep apnea No data recorded No data recorded No data recorded Past Surgical History: Procedure Laterality Date BARTHOLIN GLAND CYST EXCISION COLONOSCOPY 2014 COLONOSCOPY N/A 08/15/2018 Performed by Fabien Medellin MD at [facility] CORONARY ARTERY BYPASS GRAFT x3 with CUEVAS and SVG x2 / Left Leg EVH / VINNIE N/A 03/26/2022 Performed by Cayetano Isaac MD at [facility] CORS + LV GRAM/PRESS N/A 03/26/2022 Performed by Veronica Ramsey MD at [facility] CARDIAC CATH LABS DILATION AND CURETTAGE OF UTERUS 07/02/2022 [facility] HERNIA REPAIR ORIF Left arm Family History Problem Relation Age of Onset Diverticulitis Mother Glaucoma Mother Heart disease Father Aortic aneurysm Maternal Grandfather Heart attack Paternal Grandmother Heart attack Paternal Grandfather Breast cancer Maternal Aunt 34 Sleep disorder Neg Hx Social History Socioeconomic History Marital status: Single Spouse name: Not on file Number of children: Not on file Years of education: Not on file Highest education level: Not on file Occupational History Not on file Tobacco Use Smoking status: Never Smokeless tobacco: Never Vaping Use Vaping status: Never Used Substance and Sexual Activity Alcohol use: Yes Alcohol/week: 2.0 standard drinks of alcohol Types: 1 Glasses of wine, 1 Shots of liquor per week Comment: weekends Drug use: No Sexual activity: Defer Other Topics Concern Caffeine Use Yes Social History Narrative Not on file Social Drivers of Health Financial Resource Strain: Medium Risk (11/12/2023) Overall Financial Resource Strain (CARDIA) Difficulty of Paying Living Expenses: Somewhat hard Food Insecurity: No Food Insecurity (07/20/2024) Hunger Screening Food Insecurity - Worry: Never True Food Insecurity - Inability: Never True Transportation Needs: No Transportation Needs (11/12/2023) PRAPARE - Transportation Lack of Transportation (Medical): No Lack of Transportation (Non-Medical): No Physical Activity: Not on file Stress: Not on file Social Connections: Not on file Interpersonal Safety: Not on file Housing Instability: Low Risk (11/12/2023) Housing Instability Housing Instability: No Review of Systems Review of Systems Constitutional: Negative. HENT: Negative. Eyes: Negative. Cardiovascular: Positive for chest pain. Respiratory: Positive for shortness of breath. Hematologic/Lymphatic: Bruises/bleeds easily. Skin: Negative. Musculoskeletal: Positive for back pain. Gastrointestinal: Negative. Neurological: Positive for dizziness. Psychiatric/Behavioral: Negative. Allergic/Immunologic: Positive for environmental allergies. CARDIOVASCULAR: Please review HPI. Physical Examination General appearance: Alert, oriented and cooperative. In no acute distress. Skin: Warm and dry to touch. Head: Normocephalic, without obvious abnormality, atraumatic. Ears, Nose, Mouth, Throat: Throat clear without erythema or exudate. Dentition intact. Eyes: Conjunctivae unremarkable, EOM intact. Neck: No JVD, No carotid bruit. Neck supple, trachea midline. Respiratory: Clear to auscultation bilaterally, no use of accessory muscles. Cardiovascular: RRR with normal S1 and S2 with no murmurs. Gastrointestinal: Soft, non-tender. Bowel sounds normal. Musculoskeletal: No peripheral edema. Neurologic: Oriented to time, person and place, affect appropriate. No focal/major motor defects noted. Psychiatric: Appropriate mood, memory and judgement. VITAL SIGNS: BP 130/78 Pulse 59 Ht 152.4 cm (5') Wt 85.3 kg (188 lb) LMP (LMP Unknown) SpO2 97% BMI 36.72 kg/m Orders Placed or Reconciled This Encounter Medications valACYclovir (VALTREX) 1000 mg tablet Sig: Take 1 tablet (1,000 mg total) by mouth in the morning and 1 tablet (1,000 mg total) before bedtime. cholecalciferol, vitD3,/vit K2 (VITAMIN D3-VITAMIN K2 ORAL) Sig: Take by mouth. There are no discontinued medications. IMPRESSIONS/PLAN There are no diagnoses linked to this encounter. Exertional fatigue and dyspnea Hx NSTEMI CAD s/p CABG x3 03/2022 Low risk SPECT 02/2024 Hypertension Hyperlipidemia with prior statin intolerance CHACHO/ Not using CPAP Obesity, BMI 36 Patient well compensated, her symptoms are not ischemic could be related to exertional heart failure with preserved ejection fraction I did discuss this diagnosis in detail with the her give her an option of exercise right heart catheterization versus empirical treatment she declined both for now and would like to try GLP 1 agonist for weight loss prior which I think is a great idea as it will help heart failure with preserved ejection fraction If she decides empiric management I will treat her with Aldactone/ SGLT2 inhibitor Strongly encouraged CPAP compliance No medication changes follow-up in 6 months - EDD BRUNO MD 07/20/24 12:10 PM TODAYS ORDERS No orders of the defined types were placed in this encounter. FOLLOW UP No follow-ups on file. PCP: HI TOLBERT MD Referring Physician: Hi Tolbert MD [address] [place] [address] documented in this encounter [facility] 04-11-2024 Miscellaneous Notes MURALI 02/24/24 CMP 11/04/23 documented in this encounter [facility] 04-11-2024 Telephone encounter Note M[facility]I 02/24/24 CMP 11/04/23 [facility] 04-07-2024 Miscellaneous Notes Last OV 02/24/24 documented in this encounter [facility] 04-07-2024 Telephone encounter Note Last OV 02/24/24 [facility] 02-24-2024 History of Presen t illness Narrative Renate Field Date of visit: 02/24/2024 Date of : 1960 Age: 63 y.o. Patient Active Problem List Diagnosis BMI 33.0-33.9,adult Sleep apnea, obstructive Encounter for diagnostic colonoscopy due to change in bowel habits History of adenomatous polyp of colon NSTEMI (non-ST elevated myocardial infarction) ([facility]) CAD (coronary artery disease) Shortness of breath Diverticulitis Dysuria Allergies Allergen Reactions Penicillins Rosuvastatin Sulfate Salt Sulfa (Sulfonamide Antibiotics) Rash Current Outpatient Medications Medication Sig Dispense Refill acetaminophen (TYLENOL EXTRA STRENGTH) 500 mg tablet Take 2 tablets (1,000 mg total) by mouth every 6 (six) hours as needed for pain. 60 tablet 0 aspirin 81 mg Take 1 tablet (81 mg total) by mouth nightly. atorvastatin (LIPITOR) 20 mg tablet Take 1 tablet (20 mg total) by mouth in the morning. 30 tablet 11 CALCIUM ORAL Take by mouth daily. cholecalciferol, vitamin D3, 5,000 units tablet Take 1,000 Units by mouth in the morning. ezetimibe (ZETIA) 10 mg tablet Take 1 tablet (10 mg total) by mouth in the morning. 90 tablet 3 isosorbide mononitrate (IMDUR) 30 mg 24 hr tablet TAKE 1 TABLET BY MOUTH EVERY DAY 90 tablet 3 lisinopriL (PRINIVIL,ZESTRIL) 5 mg tablet Take 1 tablet (5 mg total) by mouth in the morning. 90 tablet 3 metFORMIN XR (GLUCOPHAGE XR) 500 mg 24 hr tablet Take 1 tablet (500 mg total) by mouth daily with breakfast. metoprolol tartrate (LOPRESSOR) 50 mg tablet Take 1 tablet (50 mg total) by mouth every 12 (twelve) hours. 180 tablet 3 dlbwbfzp-btf-PZ-lycopen-lutein (CENTRUM SILVER) 0.4 mg-300 mcg- 250 mcg tablet Take 1 tablet by mouth in the morning. nitroglycerin (NITROSTAT) 0.4 MG SL tablet 1 under the tongue as needed for angina, may repeat q5mins for up three doses 30 tablet 3 timolol (TIMOPTIC) 0.5 % ophthalmic solution Administer 1 drop to both eyes in the morning. No current facility-administered medications for this visit. Chief Complaint Patient presents with Follow-up EST PT F/U 6 MS L/S MS, SOB, ARM PAIN, NO NEW TESTS History of Present Illness Prema is here for follow-up. She has a lot of symptoms she was concerned about. She was never done great since surgery but she has been having shortness of breath and dyspnea on exertion when she goes up and down stairs recently. She had never had distinct chest pain or pressure with her angina. She was also concerned as she has had some arm tingling bilaterally. This does not come on with exertion. Comes out as she was simply resting in bed. She had that is before surgery and that has seemed to go away. Way she describes it was not typical of angina, however. None of it is exertional. Sounds more suggestive of a neuropathic process. She also reports concern that she has pain in her abdomen and isn't able to have an orgasm. She reports the same kind of issue before surgery and then it went away after CABG. She had a workup previously for the discomfort with some sort of imaging. She does not have any distinct chest pain or pressure. Other than dyspnea on exertion, she does not have any exertional symptoms. Past Medical History: Diagnosis Date Allergic rhinitis Arthritis Back pain Diverticulitis of colon Glaucoma Hemorrhoids Hyperglycemia Hyperlipidemia Hypertension Lupus Myocardial infarction ([facility]) Obstructive sleep apnea No data recorded No data recorded No data recorded Past Surgical History: Procedure Laterality Date BARTHOLIN GLAND CYST EXCISION COLONOSCOPY 2014 COLONOSCOPY N/A 08/15/2018 Performed by Fabien Medellin MD at [facility] CORONARY ARTERY BYPASS GRAFT x3 with CUEVAS and SVG x2 / Left Leg EVH / VINNIE N/A 03/26/2022 Performed by Cayetano Isaac MD at [facility] CORS + LV GRAM/PRESS N/A 03/26/2022 Performed by Veronica Ramsey MD at [facility] CARDIAC CATH LABS DILATION AND CURETTAGE OF UTERUS 07/02/2022 [facility] H[facility] REPAIR ORIF Left arm Family History Problem Relation Age of Onset Diverticulitis Mother Glaucoma Mother Heart disease Father Aortic aneurysm Maternal Grandfather Heart attack Paternal Grandmother Heart attack Paternal Grandfather Breast cancer Maternal Aunt 34 Sleep disorder Neg Hx Social History Socioeconomic History Marital status: Single Spouse name: Not on file Number of children: Not on file Years of education: Not on file Highest education level: Not on file Occupational History Not on file Tobacco Use Smoking status: Never Smokeless tobacco: Never Vaping Use Vaping status: Never Used Substance and Sexual Activity Alcohol use: Yes Alcohol/week: 2.0 standard drinks of alcohol Types: 1 Glasses of wine, 1 Shots of liquor per week Comment: weekends Drug use: No Sexual activity: Defer Other Topics Concern Caffeine Use Yes Social History Narrative Not on file Social Drivers of Health Financial Resource Strain: Medium Risk (11/12/2023) Overall Financial Resource Strain (CARDIA) Difficulty of Paying Living Expenses: Somewhat hard Food Insecurity: No Food Insecurity (02/24/2024) Hunger Screening Food Insecurity - Worry: Never True Food Insecurity - Inability: Never True Transportation Needs: No Transportation Needs (11/12/2023) PRAPARE - Transportation Lack of Transportation (Medical): No Lack of Transportation (Non-Medical): No Physical Activity: Not on file Stress: Not on file Social Connections: Not on file Interpersonal Safety: Not on file Housing Instability: Low Risk (11/12/2023) Housing Instability Housing Instability: No Review of Systems Review of Systems Constitutional: Positive for malaise/fatigue. HENT: Negative. Eyes: Negative. Cardiovascular: Positive for chest pain. Respiratory: Positive for shortness of breath. Endocrine: Negative. Hematologic/Lymphatic: Bruises/bleeds easily. Skin: Negative. Musculoskeletal: Positive for back pain and joint pain. Gastrointestinal: Positive for change in bowel habit. Genitourinary: Negative. Neurological: Positive for dizziness, light-headedness and numbness. Negative for headaches. Psychiatric/Behavioral: Negative. Allergic/Immunologic: Negative. Vascular: Negative. CARDIOVASCULAR: Please review HPI. Physical Examination General appearance: Alert, oriented and cooperative. In no acute distress. Skin: Warm and dry to touch. Head: Normocephalic, without obvious abnormality, atraumatic. Ears, Nose, Mouth, Throat: Throat clear without erythema or exudate. Dentition intact. Eyes: Conjunctivae unremarkable, EOM intact. Neck: Neck supple, trachea midline. Respiratory: Clear to auscultation bilaterally, no use of accessory muscles. Cardiovascular: RRR with normal S1 and S2 with no murmurs. Gastrointestinal: Soft, non-tender. Bowel sounds normal. Musculoskeletal: No peripheral edema. Neurologic: Oriented to time, person and place, affect appropriate. No focal/major motor defects noted. Psychiatric: Appropriate mood, memory and judgement. VITAL SIGNS: BP 122/76 (BP Site: Left Arm, BP Postition: Sitting) Pulse 54 Ht 152.4 cm (5') Wt 82.6 kg (182 lb) LMP (LMP Unknown) SpO2 97% BMI 35.54 kg/m No orders of the defined types were placed in this encounter. There are no discontinued medications. IMPRESSIONS/PLAN 1. Hx of non-ST elevation myocardial infarction (NSTEMI) - POCT EKG 2. Shortness of breath - Nuc stress Lexiscan/Exercise; Future Hx NSTEMI CAD s/p CABG x3 03/2022 Prior SPECT 02/2023 Hypertension Hyperlipidemia with prior statin intolerance CHACHO/ Not using CPAP Obesity, BMI 36 Dyspnea on exertion. She has other symptoms that sound highly atypical for angina including bilateral arm tingling unrelated to exertion as well as symptoms with sex including pain that she noticed resolved previously after CABG EKG today NSR I am not sure what to make with the bulk of her symptoms but given the dyspnea on exertion, I think we should repeat an ischemic evaluation. I am going to do an exercise-Lexiscan stress test as this does seem to be a new symptom. She does not appear overtly volume overloaded. Other symptoms are unclear and I suggested that she meet with her machinery erector. I think the bilateral arm tingling is likely neuropathic in origin but regardless, we will evaluate with stress testing. If there is abnormal, we would bring her back in talk about catheterization. She was said repeat lipids and if her LDL is not improved on the Zetia and high-intensity statin, she would be considered for PCSK9 inhibitor. TODAYS ORDERS Orders Placed This Encounter Procedures Nuc stress Lexiscan/Exercise POCT EKG FOLLOW UP Return in about 4 months (around 06/23/2024). PCP: HI TOLBERT MD Referring Physician: Hi Tolbert MD [address] [place] [address] documented in this encounter [facility] 02-23-2024 Miscellaneous Notes Left message for patient to remind them to bring their most current medication list with them to their appointment. documented in this encounter [facility] 02-23-2024 Telephone encounter Note Left message for patient to remind them to bring their most current medication list with them to their appointment. [facility] 01-27-2024 History of Presen t illness Narrative Reason for Appointment: Patient ID: Prema Field is a 63 y.o. female who presents for vaginal cyst Patient presents today for Consult appointment. MEDICATIONS Current Outpatient Medications Medication Instructions acetaminophen (TYLENOL) 1,000 mg, Every 6 hours PRN aspirin (ASPIRIN) 81 mg, Every 24 hours atorvastatin (LIPITOR) 20 mg, Daily RT colchicine 0.6 mg, Every morning isosorbide mononitrate ER (Imdur) 30 MG 24 hr tablet 1 tablet, Daily latanoprost (Xalatan) 0.005 % ophthalmic solution 1 drop, Nightly lisinopril 5 mg, Daily RT metFORMIN XR (GLUCOPHAGE-XR) 500 mg, Oral, Daily with evening meal, Do not crush, chew, or split. metoprolol tartrate (LOPRESSOR) 50 mg, 2 times daily Multiple Vitamins-Minerals (Multi Complete) capsule 1 tablet, Daily ALLERGIES Allergies Allergen Reactions Penicillins Rosuvastatin Sulfa Antibiotics Rash PROBLEMS Active Ambulatory Problems Diagnosis Date Noted Hair loss 11/29/2023 Unable to lose weight 11/29/2023 Resolved Ambulatory Problems Diagnosis Date Noted No Resolved Ambulatory Problems Past Medical History: Diagnosis Date Adenomatous colon polyp Allergic rhinitis Breast cancer screening by mammogram 04/03/2021 Cellulitis, perineum Diverticulitis Diverticulosis of colon Epidermal inclusion cyst Essential (primary) hypertension (CMS/HCC) Glaucoma (CMS/HCC) Hemoglobin A1c above reference range Hyperlipidemia, mixed (CMS/HCC) Influenza Kidney stones Low back pain Menopause present Migraine (CMS/HCC) Obesity Obesity (BMI 30-39.9) Obstructive sleep apnea Ocular rosacea Other rhinitis Pap smear for cervical cancer screening 03/28/2021 Sebaceous cyst Skin ulcer of perineum, limited to breakdown of skin (CMS/HCC) Temporomandibular joint disorder Vitamin D deficiency Vulvar cellulitis HISTORY PAST MEDICAL HISTORY SOCIAL HISTORY Past Medical History: Diagnosis Date Adenomatous colon polyp tubular adenoma Allergic rhinitis Breast cancer screening by mammogram 04/03/2021 neg Cellulitis, perineum Diverticulitis Diverticulosis of colon mod sigmoid Epidermal inclusion cyst Essential (primary) hypertension (CMS/HCC) Glaucoma (CMS/HCC) Hemoglobin A1c above reference range Hyperlipidemia, mixed (CMS/HCC) Influenza Kidney stones Low back pain lumbar Menopause present Migraine (CMS/HCC) Obesity Obesity (BMI 30-39.9) Obstructive sleep apnea Ocular rosacea Other rhinitis Pap smear for cervical cancer screening 03/28/2021 neg Sebaceous cyst Skin ulcer of perineum, limited to breakdown of skin (CMS/HCC) Temporomandibular joint disorder Vitamin D deficiency Vulvar cellulitis Social History Tobacco Use Smoking status: Never Smokeless tobacco: Not on file Substance Use Topics Alcohol use: Yes Comment: Alcohol: 1 or 2 drinks on a typical day / 2 to 4 times a month. Caffeine: 1-2 cups/day Drug use: Never FAMILY HISTORY Family History Problem Relation Name Age of Onset Diverticulitis Mother Glaucoma Mother Heart disease Father CABG 60y Diverticulitis Maternal Grandmother Dementia Maternal Grandmother Urinary tract infection Maternal Grandmother Other (AAA) Maternal Grandfather Parkinsonism Maternal Grandfather Heart attack Paternal Grandmother Heart attack Paternal Grandfather Obesity Child Sleep apnea Child Breast cancer Mother's Sister Other (Brain Tumor) Cousin SURGICAL HISTORY Past Surgical History: Procedure Laterality Date COLONOSCOPY 04/2014 tubular adenoma, mod sigmoid diverticulosis/[facility] COLONOSCOPY 2000 diverticulosis mininal /[facility] COLONOSCOPY 08/15/2018 severe diverticulosis/[facility] CORONARY BYPASS GRAFT STUDY 03/2022 DILATION AND CURETTAGE OF UTERUS 06/25/2022 PAP SMEAR 11/01/2015 PFT COMPLETE 07/26/2014 ( Normal) MI EXC BARTHOLINS GLAND/CYST 2010 UMBILICAL HERNIA REPAIR 2009 Umbilical herniorrhaphy ( mesh) REVIEW OF SYSTEMS Review of Systems: Review of Systems All other systems reviewed and are negative. OBJECTIVE Objective: Physical Exam Constitutional: Appearance: Normal appearance. She is well-developed. Genitourinary: Vulva normal. Cardiovascular: Rate and Rhythm: Normal rate and regular rhythm. Pulmonary: Effort: Pulmonary effort is normal. Breath sounds: Normal breath sounds. Abdominal: General: Bowel sounds are normal. There is no distension. Palpations: Abdomen is soft. Tenderness: There is no abdominal tenderness. There is no guarding or rebound. Musculoskeletal: General: No swelling. Normal range of motion. Right lower leg: No edema. Left lower leg: No edema. Neurological: Mental Status: She is alert and oriented to person, place, and time. Skin: General: Skin is warm and dry. Psychiatric: Mood and Affect: Mood normal. Behavior: Behavior normal. Vitals and nursing note reviewed. Exam conducted with a pretzel cooker present. Vitals: Estimated body mass index is 36.36 kg/m as calculated from the following: Height as of 07/08/23: 5'. Weight as of this encounter: 186 lb 3.2 oz. BP: No LMP recorded (lmp unknown). Patient is postmenopausal. ASSESSMENT & PLAN ICD-10-CM 1. Vaginal cysts N89.8 Patient presents for vaginal cyst. Patient denies vaginal discharge and vaginal itching/burning. Folliculitis seen on pelvic exam. Keflex and Diflucan sent to patients pharmacy to help with symptoms. Vaginal cultures obtained without difficulty. Documented by Annika Barakat LPN on behalf of: KELVIN Richardson documented in this encounter [facility] 11-29-2023 History of Presen t illness Narrative Reason for Appointment: Patient ID: Prema Field is a 63 y.o. female who presents for Well Women Visit Patient presents today for Annual Exam. MEDICATIONS Current Outpatient Medications Medication Instructions acetaminophen (TYLENOL) 1,000 mg, Every 6 hours PRN aspirin (ASPIRIN) 81 mg, Every 24 hours atorvastatin (LIPITOR) 20 mg, Daily RT colchicine 0.6 mg, Every morning isosorbide mononitrate ER (Imdur) 30 MG 24 hr tablet 1 tablet, Daily latanoprost (Xalatan) 0.005 % ophthalmic solution 1 drop, Nightly lisinopril 5 mg, Daily RT metoprolol tartrate (LOPRESSOR) 50 mg, 2 times daily Multiple Vitamins-Minerals (Multi Complete) capsule 1 tablet, Daily ALLERGIES Allergies Allergen Reactions Penicillins Rosuvastatin Sulfa Antibiotics Rash PROBLEMS Active Ambulatory Problems Diagnosis Date Noted No Active Ambulatory Problems Resolved Ambulatory Problems Diagnosis Date Noted No Resolved Ambulatory Problems Past Medical History: Diagnosis Date Adenomatous colon polyp Allergic rhinitis Breast cancer screening by mammogram 04/03/2021 Cellulitis, perineum Diverticulitis Diverticulosis of colon Epidermal inclusion cyst Essential (primary) hypertension (CMS/HCC) Glaucoma (CMS/HCC) Hemoglobin A1c above reference range Hyperlipidemia, mixed (CMS/HCC) Influenza Kidney stones Low back pain Menopause present Migraine (CMS/HCC) Obesity Obesity (BMI 30-39.9) Obstructive sleep apnea Ocular rosacea Other rhinitis Pap smear for cervical cancer screening 03/28/2021 Sebaceous cyst Skin ulcer of perineum, limited to breakdown of skin (CMS/HCC) Temporomandibular joint disorder Vitamin D deficiency Vulvar cellulitis HISTORY PAST MEDICAL HISTORY SOCIAL HISTORY Past Medical History: Diagnosis Date Adenomatous colon polyp tubular adenoma Allergic rhinitis Breast cancer screening by mammogram 04/03/2021 neg Cellulitis, perineum Diverticulitis Diverticulosis of colon mod sigmoid Epidermal inclusion cyst Essential (primary) hypertension (CMS/HCC) Glaucoma (CMS/HCC) Hemoglobin A1c above reference range Hyperlipidemia, mixed (CMS/HCC) Influenza Kidney stones Low back pain lumbar Menopause present Migraine (CMS/HCC) Obesity Obesity (BMI 30-39.9) Obstructive sleep apnea Ocular rosacea Other rhinitis Pap smear for cervical cancer screening 03/28/2021 neg Sebaceous cyst Skin ulcer of perineum, limited to breakdown of skin (CMS/HCC) Temporomandibular joint disorder Vitamin D deficiency Vulvar cellulitis Social History Tobacco Use Smoking status: Never Smokeless tobacco: Not on file Substance Use Topics Alcohol use: Yes Comment: Alcohol: 1 or 2 drinks on a typical day / 2 to 4 times a month. Caffeine: 1-2 cups/day Drug use: Never FAMILY HISTORY Family History Problem Relation Name Age of Onset Diverticulitis Mother Glaucoma Mother Heart disease Father CABG 60y Diverticulitis Maternal Grandmother Dementia Maternal Grandmother Urinary tract infection Maternal Grandmother Other (AAA) Maternal Grandfather Parkinsonism Maternal Grandfather Heart attack Paternal Grandmother Heart attack Paternal Grandfather Obesity Child Sleep apnea Child Breast cancer Mother's Sister Other (Brain Tumor) Cousin SURGICAL HISTORY Past Surgical History: Procedure Laterality Date COLONOSCOPY 04/2014 tubular adenoma, mod sigmoid diverticulosis/[place] COLONOSCOPY 2000 diverticulosis mininal /[place] COLONOSCOPY 08/15/2018 severe diverticulosis/[place] CORONARY BYPASS GRAFT STUDY 03/2022 DILATION AND CURETTAGE OF UTERUS 06/25/2022 PAP SMEAR 11/01/2015 PFT COMPLETE 07/26/2014 ( Normal) MI EXC BARTHOLINS GLAND/CYST 2010 UMBILICAL HERNIA REPAIR 2009 Umbilical herniorrhaphy ( mesh) REVIEW OF SYSTEMS Review of Systems: Review of Systems All other systems reviewed and are negative. OBJECTIVE Objective: Physical Exam Constitutional: Appearance: Normal appearance. She is well-developed. Genitourinary: Vulva normal. Breasts: Breasts are soft. Right: Normal. Left: Normal. Cardiovascular: Rate and Rhythm: Normal rate and regular rhythm. Pulmonary: Effort: Pulmonary effort is normal. Breath sounds: Normal breath sounds. Abdominal: General: Bowel sounds are normal. There is no distension. Palpations: Abdomen is soft. Tenderness: There is no abdominal tenderness. There is no guarding or rebound. Musculoskeletal: General: No swelling. Normal range of motion. Right lower leg: No edema. Left lower leg: No edema. Neurological: Mental Status: She is alert and oriented to person, place, and time. Skin: General: Skin is warm and dry. Psychiatric: Mood and Affect: Mood normal. Behavior: Behavior normal. Vitals and nursing note reviewed. Exam conducted with a pretzel cooker present. Vitals: Estimated body mass index is 35.18 kg/m as calculated from the following: Height as of 07/08/22: 5'. Weight as of this encounter: 180 lb 1.9 oz. BP: 130/70 No LMP recorded (lmp unknown). Patient is postmenopausal. ASSESSMENT & PLAN ICD-10-CM 1. Well woman exam with routine gynecological exam Z01.419 THIN PREP TIS PAP AND HR HPV DNA 2. Breast cancer screening by mammogram Z12.31 Bilateral screening mammogram Bilateral screening mammogram 3. Osteopenia, unspecified location M85.80 DEXA bone density Annual: Patient presents today for an annual exam. Patient states she is doing well and has no complaints. Pap was obtained without difficulty and patient given mammogram order to have scheduled/obtained. Discussed increasing Calcium and Vitamin D & doing weight bearing exercises to assist with bone health. Patient inquired about hair loss, inability to loss weight and increased fatigue. Orders Placed This Encounter Procedures Bilateral screening mammogram DEXA bone density Follow Up: Patient is to return in one year for annual unless needed otherwise. Documented by Annika Barakat LPN on behalf of: Devin Marks DO documented in this encounter [facility] 06-25-2022 Note OPERATIVE NOTE OPERATION DATE: 06/25/2022 PROCEDURE: D AND C hysteroscopy with MyoSure. PREOPERATIVE DIAGNOSIS: Thickened endometrium. POSTOPERATIVE DIAGNOSIS: Thickened endometrium including endometrial polyp. ANESTHESIA: General. SURGEON: Dvein Marks D.O. DELIVERY MANAGER: None. SPECIMEN: Endometrial curettings, endometrial polyp. FINDINGS: Normal appearing cavity. No gross evidence of fibroids or malignancy. Endometrial polyp seen. PROCEDURE: The patient was taken back to the Operating Room where she was prepped and draped in normal sterile fashion after being placed under general anesthesia without difficulty. She was also placed in the dorsal lithotomy position. A weighted speculum was placed in the patient's vagina. The anterior lip of the cervix was identified and grasped with a single tooth tenaculum. The patient's uterus was then sounded roughly to 10 cm. The patient was then gently dilated using Hegar dilators. The hysteroscope was passed through the patient's cervix into the uterus. Both ostia were identified; slightly thickened appearing endometrium. No gross evidence of malignancy. Please note that the MyoSure apparatus was placed through the hysteroscope under direct visualization. The apparatus was engaged and endometrial curettings were removed under direct visualization. The MyoSure was then removed from the scope. The hysteroscope was then removed from the patient's uterus. The endometrial curettings were sent out to pathology. The single tooth tenaculum was then removed from the patient's anterior lip of the cervix where excellent hemostasis was noted. All instruments were removed from the patient's vagina. The patient tolerated the procedure well. Sponge, lap and needle counts were correct times two. The patient was taken to the Recovery Room in stable condition. [facility] 03-28-2021 Note SATISFACTORY FOR EVALUATION [facility] [place] [employer] Machine Operator Comment on above: Order Comment: [facility] Testing performed at: O, [address] [place], [address], Cuprous Chloride Operator: Primo Whitten MD [facility] Collection Date/Time: [id number] [facility] Results Received Date/Time: [id number] [facility] Reported Date/Time: [id number] Performed By: #### [id number], [id number] #### [facility] Default [address] [place] [address] Evaluation note Diagnosis Well woman exam with routine gynecological exam Routine gynecological examination Breast cancer screening by mammogram Osteopenia, unspecified location Fatigue, unspecified type Hair loss Unspecified alopecia Unable to lose weight documented in this encounter [facility] HealthcareEvaluation note* Diagnosis Vaginal cysts Other specified noninflammatory disorder of vagina Folliculitis Other specified disease of hair and hair follicles Itching in the vaginal area Pruritus of genital organs Yeast infection documented in this encounter [facility] HealthcareEvaluation note* Diagnosis Hx of non-ST elevation myocardial infarction (NSTEMI)- Primary Shortness of breath documented in this encounter [facility]* Diagnosis Multiple vessel coronary artery disease documented in this encounter [facility]* Diagnosis Hx of non-ST elevation myocardial infarction (NSTEMI)- Primary Shortness of breath Hx of CABG Postsurgical aortocoronary bypass status Obesity (BMI 30-39.9) documented in this encounter [facility]* Diagnosis Obesity (BMI 35.0-39.9 without comorbidity)- Primary Hyperglycemia Other abnormal glucose Prediabetes Other abnormal glucose documented in this encounter [facility]* Diagnosis Healthcare maintenance- Primary Obesity (BMI 35.0-39.9 without comorbidity) Prediabetes Other abnormal glucose 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 documented in this encounter [facility]* Diagnosis Healthcare maintenance- Primary Obesity (BMI 35.0-39.9 without comorbidity) Prediabetes Other abnormal glucose 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 Acute bilateral low back pain with right-sided sciatica- Primary documented in this encounter [facility]* Diagnosis Healthcare maintenance- Primary Obesity (BMI 35.0-39.9 without comorbidity) Prediabetes Other abnormal glucose 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 Bulging of lumbar intervertebral disc- Primary Acute bilateral low back pain with sciatica, sciatica laterality unspecified documented in this encounter [facility]* Diagnosis Healthcare maintenance- Primary Obesity (BMI 35.0-39.9 without comorbidity) Prediabetes Other abnormal glucose 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 Acute bilateral low back pain with sciatica, sciatica laterality unspecified- Primary Bulging of lumbar intervertebral disc Acute bilateral low back pain with right-sided sciatica documented in this encounter [facility]* Diagnosis Healthcare maintenance- Primary Obesity (BMI 35.0-39.9 without comorbidity) Prediabetes Other abnormal glucose 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 Acute bilateral low back pain with right-sided sciatica- Primary Acute bilateral low back pain with right-sided sciatica documented [facility] Diagnosis Well woman exam with routine gynecological exam Routine gynecological examination Encounter for screening mammogram for malignant neoplasm of breast Osteoporosis, post-menopausal Senile osteoporosis Urinary tract infection without hematuria, site unspecified documented in this encounter [facility] HealthcareInstructionsNot on filedocumented in this encounterPro[facility] SystemInstructionsNot on filedocumented in this encounterProMidd[facility] SystemInstructionsNot on filedocumented in this encounterProMiddlet[facility] SystemInstructionsNot on filedocumented in this encounterAshtab[facility] InstructionsNot on filedocumented in this encounterAshtabula [facility] InstructionsNot on filedocumented in this encounterAshtabula [facility] InstructionsNot on filedocumented in this encounterAshtabula [facility] InstructionsNot on filedocumented in this encounterAshtabula [facility] InstructionsNot on filedocumented in this encounterAshtabula [facility] InstructionsNot on filedocumented in this encounterAshtabula [facility] InstructionsNot on filedocumented in this encounterAshtabula [facility] Instructions* Attachments The following attachments cannot be sent through Care Everywhere. * Low back pain Discharge instructions (Tajik) documented in this [facility] Summary Purpose Family History No Family History Records FoundNo Family History Records FoundNo Family History Records FoundNo Family History Records FoundNo Family History Records FoundNo Family History Records FoundNo Family History Records Found Advance Directives Date Activated Date Inactivated Comments 03/26/2022 2:45 PM 03/30/2022 6:28 PM Date Activated Date Inactivated Comments 03/26/2022 2:45 PM 03/30/2022 6:28 PM Additional Source Comments INFORMATION SOURCE (unrecogn ized section and content) DATE CREATED AUTHOR 08/23/2021 [facility] dical Specialist DATE CREATED AUTHOR AUTHOR'S ORGANIZ ATION 06/26/2022 [facility] DATE CREATED AUTHOR AUTHOR'S ORGANIZ ATION 12/02/2022 [facility] DATE CREATED AUTHOR AUTHOR'S ORGANIZ ATION 02/25/2023 [facility] DATE CREATED AUTHOR AUTHOR'S ORGANIZ ATION 01/30/2024 [facility] dical Specialists EPIC DATE CREATED AUTHOR AUTHOR'S ORGANIZ ATION 11/17/2024 [facility] DATE CREATED AUTHOR AUTHOR'S ORGANIZ ATION 11/23/2024 [facility] Care Teams (unrecognized sec tion and content) Campaign Management Senior Manager Relationship Specialty Start Date End Date Unallocated, Sabas Lange MD [address] [place] [address] PCP - General Family Medicine 04/28/23 Campaign Management Senior Manager Relationship Specialty Start Date End Date Unallocated, Sabas Lange MD [address] [facility] [place] [address] PCP - General Family Medicine 04/28/23 Campaign Management Senior Manager Relationship Specialty Start Date End Date Unallocated, Sabas Lange MD [facility] [place] [address] PCP - General Family Medicine 04/28/23 Campaign Management Senior Manager Relationship Specialty Start Date End Date Unallocated, Sabas Lange MD [facility] [place] [address] PCP - General Family Medicine 04/28/23 Campaign Management Senior Manager Relationship Specialty Start Date End Date Unallocated, Sabas Lange MD [address] [place] [address] PCP - General Family Medicine 04/28/23 Campaign Management Senior Manager Relationship Specialty Start Date End Date Hi Tolbert MD [address] [place] [address] PCP - General 04/08/23 Campaign Management Senior Manager Relationship Specialty Start Date End Date Hi Tolbert MD [address] [place] [address] PCP - General 04/08/23 Campaign Management Senior Manager Relationship Specialty Start Date End Date Hi Tolbert MD [address], [place] [address] PCP - General 04/08/23 Campaign Management Senior Manager Relationship Specialty Start Date End Date Hi Tolbert MD [address], [place] [address] PCP - General 04/08/23 Campaign Management Senior Manager Relationship Specialty Start Date End Date Hi Tolbert MD [address], [place] [address] PCP - General 04/08/23 Campaign Management Senior Manager Relationship Specialty Start Date End Date Hi Tolbert MD [address], [place] [address] PCP - General 04/08/23 Campaign Management Senior Manager Relationship Specialty Start Date End Date Hi Tolbert MD [address], [place] [address] PCP - General 04/08/23 Campaign Management Senior Manager Relationship Specialty Start Date End Date Hi Tolbert MD [address], [place] [address] PCP - General 04/08/23 Campaign Management Senior Manager Relationship Specialty Start Date End Date Hi Tolbert MD [address], [place] [address] PCP - General 04/08/23 Campaign Management Senior Manager Relationship Specialty Start Date End Date Hi Tolbert MD [address] [place] [address] PCP - General 04/08/23 Campaign Management Senior Manager Relationship Specialty Start Date End Date Hi Tolbert MD [address] [place] [address] PCP - General 04/08/23 Campaign Management Senior Manager Relationship Specialty Start Date End Date Hi Tolbert MD [address] [place] [address] PCP - General 04/08/23 Campaign Management Senior Manager Relationship Specialty Start Date End Date Hi Tolbert MD [address] [place] [address] PCP - General 04/08/23 Campaign Management Senior Manager Relationship Specialty Start Date End Date Hi Tolbert MD [address] [place] [address] PCP - General 04/08/23 Campaign Management Senior Manager Relationship Specialty Start Date End Date Unallocated, Noms Provider, [address] [place] [address] PCP - General Family Medicine 04/28/23 Reason for Visit (unrecogniz ed section and content) Reason Comments Well Women Visit Reason Comments vaginal cyst Reason Comments Follow-up EST PT F/U 6 MS L/S MS, SOB, ARM PAIN, NO NEW TESTS Reason Comments Med Refill Reason Comments Follow-up Coronary Artery Disease Reason Comments ozempic Back Pain Reason Comments wellness Reason Onset Date Comments Med Refill 10/04/2024 Reason Comments Er Follow-up PMH 10/26 Reason Onset Date Comments Med Refill 11/03/2024 Reason Comments Back Pain Reason Comments Gynecologic Exam FOR RECORDS PERTAINING TO PATIENTS WHO ARE OR HAVE BEEN ENROLLED IN A CHEMICAL DEPENDENCY/SUBSTANCEABUSE PROGRAM, SOME INFORMATION MAY BE OMITTED. This clinical summary was aggregated from multiple sources. Caution should be exercised in using it in the provision of clinical care. This summary normalizes information from multiple sources, and as a consequence, information in this document may materially change the coding, format and clinical context of patient data. In addition, data may be omitted in some cases. CLINICAL DECISIONS SHOULD BE BASED ON THE PRIMARY CLINICAL RECORDS. [facility] [employer] [facility]. provides no warranty or guarantee of the accuracy or completeness of information in this document.
== END 2024-11-30 12:45 | disposition home or self-care (01) ==
LOC: LAB 12:44
PROVIDERS: Visit Provider Obstetrics & Gynecology
DX: Z01.419 Encounter for gynecological examination (general) (routine) without abnormal findings (principal)
CPT/HCPCS: 87624; 88175